=== PATIENT | female | born 1940 | race Caucasian/White ===

== ENCOUNTER 2024-07-04 17:10 | Emergency (ER) | payer OTHER ==
[~2024-07-04] VITALS: Ht 162.6 cm; Wt 65.9 kg
[2024-07-04 17:32] VITALS: BP 104/67; PULSE 105; RESP 16; TEMP 98.9; O2SAT 98
[2024-07-04 20:29] LABS: BASOPHILS % (AUTO) 0.6 % (0-1); EOSINOPHILS # (AUTO) 0.1 X10'3 (0-0.9); HEMATOCRIT 36.4 % (35.0-45.0); HEMOGLOBIN 12.3 g/dl (12.0-16.0); LYMPHOCYTES # (AUTO) 1.4 X10'3 (1.1-4.8); LYMPHOCYTES % (AUTO) 20.9 % (21-51); MEAN CORPUSCULAR HEMOGLOBIN 33.4 PG (27.0-31.0); MEAN CORPUSCULAR HGB CONC 33.8 g/dL (33.0-36.5); MEAN CORPUSCULAR VOLUME 98.9 FL (78-98); MEAN PLATELET VOLUME 9.5 FL (7.4-10.4); MONOCYTES # (AUTO) 0.7 X10'3 (0-0.9); MONOCYTES % (AUTO) 9.9 % (2-12); NEUTROPHILS # (AUTO) 4.6 X10'3 (1.8-7.7); NEUTROPHILS % (AUTO) 67.6 % (42-75); PLATELET COUNT 200 X10'3 (140-440); RED BLOOD COUNT 3.68 X10'6 (4.20-5.60); RED CELL DISTRIBUTION WIDTH 17.2 % (11.5-14.5); WHITE BLOOD COUNT 6.8 X10'3 (4.5-11.0)
[2024-07-04 20:55] LABS: ALBUMIN 2.3 G/DL (3.4-5.0); ANION GAP 14 (8-16); BLOOD UREA NITROGEN 12 MG/DL (7-18); BUN/CREATININE RATIO 12.1 (10.0-20.0); CALCIUM 8.5 MG/DL (8.5-10.1); CHLORIDE 104 MMOL/L (99-107); CREATININE 0.99 MG/DL (0.40-0.90); GLUCOSE 104 MG/DL (70-104); MAGNESIUM 1.7 MG/DL (1.5-2.4); POTASSIUM 3.2 MMOL/L (3.5-5.1); PRO BRAIN NATRIURETIC PEPTIDE 6210 PG/ML (0-450); SODIUM 139 MMOL/L (135-145); TOTAL CARBON DIOXIDE 21.2 MMOL/L (24-32); eCRCL 38 ML/MIN; eGFR 54 ML/MIN
[2024-07-04] MEDS ORDERED: AMOX-419 PO (21:49)
[2024-07-04] MEDS ORDERED: POTA-207 PO (21:49)
[2024-07-04] MEDS: CefTRIAXone/D5W-Rocephin 1gm 50 ML IV ONE (22:00)
[2024-07-04] MEDS: normal saline 1000ML IV soln IVB ONE (22:00)
== END 2024-07-04 23:05 | disposition home or self-care (01) ==
LOC: ER 17:11
DX: R05.9 Cough, unspecified (principal); R06.00 Dyspnea, unspecified; F03.90 Unspecified dementia, unspecified severity, without behavioral disturbance, psychotic disturbance, mood disturbance, and anxiety; I50.9 Heart failure, unspecified
CPT/HCPCS: 36415; 71045; 80048; 83605; 83735; 83880; 84145; 84484; 85025; 93005; 96365; 99285; J0696; J7030; J7040

== ENCOUNTER 2024-07-09 15:36 | Observation (INO) | payer MEDICARE, OTHER ==
[~2024-07-09] VITALS: Ht 149.9 cm; Wt 59.8 kg
[~2024-07-09 15:36] MED LIST: AMOX-419 PO; POTA-207 PO
[2024-07-09 16:38] LABS: BASOPHILS % (AUTO) 0.5 % (0-1); EOSINOPHILS # (AUTO) 0.1 X10'3 (0-0.9); EOSINOPHILS % (AUTO) 1.3 % (0-6); HEMATOCRIT 35.9 % (35.0-45.0); HEMOGLOBIN 12.1 g/dl (12.0-16.0); LYMPHOCYTES # (AUTO) 1.5 X10'3 (1.1-4.8); LYMPHOCYTES % (AUTO) 23.4 % (21-51); MEAN CORPUSCULAR HEMOGLOBIN 33.2 PG (27.0-31.0); MEAN CORPUSCULAR HGB CONC 33.6 g/dL (33.0-36.5); MEAN CORPUSCULAR VOLUME 98.6 FL (78-98); MEAN PLATELET VOLUME 9.4 FL (7.4-10.4); MONOCYTES # (AUTO) 0.6 X10'3 (0-0.9); MONOCYTES % (AUTO) 8.7 % (2-12); NEUTROPHILS # (AUTO) 4.4 X10'3 (1.8-7.7); NEUTROPHILS % (AUTO) 66.1 % (42-75); PLATELET COUNT 184 X10'3 (140-440); RED BLOOD COUNT 3.64 X10'6 (4.20-5.60); RED CELL DISTRIBUTION WIDTH 16.6 % (11.5-14.5); WHITE BLOOD COUNT 6.6 X10'3 (4.5-11.0)
[2024-07-09] MEDS ORDERED: METOPROLOL ER PO (16:44)
[2024-07-09] MEDS ORDERED: DABI75CA3 PO (16:44)
[2024-07-09] MEDS: dextrose 5%-1/2 normal saline 1,000 ML IV ONE (16:55)
[2024-07-09 17:01] LABS: ALANINE AMINOTRANSFERASE 17 U/L (12-78); ALBUMIN 2.2 G/DL (3.4-5.0); ALBUMIN/GLOBULIN RATIO 0.6 (1.1-1.5); ALKALINE PHOSPHATASE 68 IU/L (46-116); ANION GAP 11 (8-16); ASPARTATE AMINO TRANSFERASE 27 U/L (10-37); BILIRUBIN,DIRECT 0.4 MG/DL (0-0.3); BILIRUBIN,TOTAL 1.1 MG/DL (0.1-1.0); BLOOD UREA NITROGEN 7 MG/DL (7-18); BUN/CREATININE RATIO 7.1 (10.0-20.0); CHLORIDE 106 MMOL/L (99-107); CREATININE 0.99 MG/DL (0.40-0.90); GLUCOSE 80 MG/DL (70-104); MAGNESIUM 1.9 MG/DL (1.5-2.4); SODIUM 140 MMOL/L (135-145); TOTAL CARBON DIOXIDE 23.2 MMOL/L (24-32); TOTAL PROTEIN 6.2 G/DL (6.4-8.2); eCRCL 18 ML/MIN; eGFR 54 ML/MIN
[2024-07-09] MEDS: magnesium sulf-water 2g/50mL 50 ML IV ONE (17:35)
[2024-07-09 18:08] LABS: BILIRUBIN,URINE NEGATIVE (Neg); CLARITY,URINE CLEAR (Clear); COLOR,URINE YELLOW (Yellow); GLUCOSE, URINE NEGATIVE (Neg); KETONES,URINE 15 mg/dl (Neg); LEUKOCYTE ESTERASE ,URINE NEGATIVE (Neg); NITRITES, URINE NEGATIVE (Neg); OCCULT BLOOD,URINE NEGATIVE (Neg); PROTEIN,URINE NEGATIVE (Neg); UROBILINOGEN,URINE 0.2 E.U/dL (0.2-1.0)
[2024-07-09 18:20] LABS: UA COLLECTION TYPE STRAIGHT CATH
[2024-07-09] MEDS ORDERED: magnesium sulf-water 2g/50mL 50 ML IV PRN ×2 (18:20→19:25)
[2024-07-09] MEDS ORDERED: potassium Cl 40MEQ/1/2NS 520ml 520 ML IV PRN ×2 (18:20→19:25)
[2024-07-09] MEDS ORDERED: potassium Cl 20 mEq SR tablet PO PRN ×3 (18:20→19:25)
[2024-07-09] MEDS ORDERED: magnesium Cl slow-release 64mg tablet PO PRN ×2 (18:20→19:25)
[2024-07-09] MEDS ORDERED: magnesium sulf-water 4G/100mL 100 ML IV PRN ×2 (18:20→19:25)
[2024-07-09] MEDS: potassium CL 10mEq/100ml bag 100 ML IV ONE (19:04)
[2024-07-09] MEDS: K and/or MAG REPLACEMENT MC SCH ×2 (19:05→19:46)
[2024-07-09] MEDS: CefTRIAXone 2gm/D5W 50ml BAG 50 ML IV ONE (19:11)
[2024-07-09] MEDS ORDERED: metoclopramide 5 mg/ml inj IV PRN (19:25)
[2024-07-09] MEDS ORDERED: ondansetron/PF 4mg/2ml inj IV PRN (19:25)
[2024-07-09] MEDS: normal saline 1000ml 1,000 ML IV SCH (19:25)
[2024-07-09] MEDS ORDERED: acetaminophen 325mg tablet PO PRN (19:25)
[2024-07-09 21:20] LABS: ABG HCO3 17.8 mmol/L (21.0-28.0); ABG OXYGEN SATURATION 96.1 % (94.0-98.0); ABG PCO2 (T) 20.9 mmHg (32.0-45.0); ABG PH (T) 7.546 (7.350-7.450); ABG PO2 (T) 74.9 mmHg (83.0-108.0); ALLEN'S TEST POSITIVE; FCOHb 0.3 % (0.5-1.5); FHHb 3.9 % (0.0-5.0); FMetHb 0.3 % (0.0-1.5); FO2Hb 95.5 % (94.0-98.0); MODE ROOM AIR; PATIENT TEMPERATURE 36.7; TOTAL HEMOGLOBIN 11.7 G/dl (12.0-16.0)
[2024-07-10 00:10] VITALS: BP 134/80; PULSE 92; RESP 16; TEMP 98.3; O2SAT 96
[2024-07-10 06:00] VITALS: BP 114/95; PULSE 105; RESP 18; TEMP 97.6; O2SAT 97
[2024-07-10 06:30] LABS: BASOPHILS % (AUTO) 0.6 % (0-1); EOSINOPHILS # (AUTO) 0.1 X10'3 (0-0.9); EOSINOPHILS % (AUTO) 1.5 % (0-6); HEMATOCRIT 37.9 % (35.0-45.0); HEMOGLOBIN 12.6 g/dl (12.0-16.0); LYMPHOCYTES # (AUTO) 1.4 X10'3 (1.1-4.8); LYMPHOCYTES % (AUTO) 21.6 % (21-51); MEAN CORPUSCULAR HEMOGLOBIN 33.3 PG (27.0-31.0); MEAN CORPUSCULAR HGB CONC 33.3 g/dL (33.0-36.5); MEAN CORPUSCULAR VOLUME 99.9 FL (78-98); MEAN PLATELET VOLUME 9.1 FL (7.4-10.4); MONOCYTES # (AUTO) 0.5 X10'3 (0-0.9); MONOCYTES % (AUTO) 8.3 % (2-12); NEUTROPHILS # (AUTO) 4.4 X10'3 (1.8-7.7); PLATELET COUNT 166 X10'3 (140-440); RED BLOOD COUNT 3.79 X10'6 (4.20-5.60); WHITE BLOOD COUNT 6.5 X10'3 (4.5-11.0)
[2024-07-10 08:00] VITALS: BP 114/95; PULSE 105
[2024-07-10 08:50] LABS: ALBUMIN 1.9 G/DL (3.4-5.0); ANION GAP 11 (8-16); BLOOD UREA NITROGEN 5 MG/DL (7-18); BUN/CREATININE RATIO 6.3 (10.0-20.0); CALCIUM 6.7 MG/DL (8.5-10.1); CHLORIDE 108 MMOL/L (99-107); GLUCOSE 84 MG/DL (70-104); MAGNESIUM 1.6 MG/DL (1.5-2.4); SODIUM 139 MMOL/L (135-145); TOTAL CARBON DIOXIDE 20.3 MMOL/L (24-32); eCRCL 23 ML/MIN; eGFR 69 ML/MIN
[2024-07-10 08:55] LABS: POTASSIUM 3.3 MMOL/L (3.5-5.1)
[2024-07-10] MEDS: potassium Cl 20 mEq SR tablet PO PRN (09:57)
[2024-07-10 10:00] VITALS: BP 125/76; PULSE 99; RESP 18; TEMP 97.3; O2SAT 98
[2024-07-10] MEDS: metoprolol succinate 25mg (24-HOUR) SR. Tablet PO ONE (12:23)
[2024-07-10 14:00] VITALS: BP_SYST 115; BP_SYST 121; BP_DIAS 73; BP_DIAS 75; PULSE 91; PULSE 97
[2024-07-10] MEDS ORDERED: glucagon, human recombinant 1mg kit SUBCUT PRN (14:15)
[2024-07-10] MEDS ORDERED: DEXTROSE 15 GM of carb/4 tabs (each vial/BOTTLE has 4 tablets) PO PRN ×2 (14:15)
[2024-07-10] MEDS ORDERED: dextrose 50%-water 50ml dispensing syringe IV PRN ×2 (14:15)
[2024-07-10] MEDS ORDERED: lactose-reduced food (Ensure Enlive) - 237ml bottle PO SCH (18:00)
[2024-07-11] MEDS ORDERED: metoprolol succinate 25mg (24-HOUR) SR. Tablet PO SCH (08:00)
[2024-07-17] MEDS ORDERED: LACT1CAP26 PO (12:17)
[2024-07-17] MEDS ORDERED: LEVO-65 PO (12:17)
== END 2024-07-10 17:45 | disposition home or self-care (01) ==
LOC: ER 15:38 → INTOOBSV 18:18 → UNDOADMOB 18:18 → ED HOLD 18:18 → ORTHO 4S 23:45 → ED HOLD 23:45
PROVIDERS: ADMIT Internal Medicine; ATTEND Internal Medicine
DX: R62.7 Adult failure to thrive (principal); E87.6 Hypokalemia; F03.90 Unspecified dementia, unspecified severity, without behavioral disturbance, psychotic disturbance, mood disturbance, and anxiety; I48.91 Unspecified atrial fibrillation; J90 Pleural effusion, not elsewhere classified; E16.2 Hypoglycemia, unspecified; Z68.1 Body mass index [BMI] 19.9 or less, adult; Z88.0 Allergy status to penicillin; Z79.899 Other long term (current) drug therapy; Z68.26 Body mass index [BMI] 26.0-26.9, adult
CPT/HCPCS: 80048; 80076; 81003; 82803; 82948; 83605; 83735; 84145; 84484; 85018; 87040; 93005; 96361; 96365; 96366; 96368; 99285; G0378; 36415; 36600; 71045; 85025; 87081; 92508; 92616; A4353; J0696; J3480; J7030

== ENCOUNTER 2024-08-13 10:56 | Inpatient (IN) | payer OTHER ==
[~2024-08-13] VITALS: Ht 157.5 cm; Wt 40.0 kg
[~2024-08-13 10:56] MED LIST changes: -AMOX-419 PO; +DABI75CA3 PO; +LACT1CAP26 PO; +METOPROLOL ER PO; -POTA-207 PO
[2024-08-13 13:22] LABS: BASOPHILS % (AUTO) 0.3 % (0-1); EOSINOPHILS # (AUTO) 0.1 X10'3 (0-0.9); EOSINOPHILS % (AUTO) 1.9 % (0-6); HEMATOCRIT 39.8 % (35.0-45.0); HEMOGLOBIN 13.4 g/dl (12.0-16.0); LYMPHOCYTES # (AUTO) 1.9 X10'3 (1.1-4.8); LYMPHOCYTES % (AUTO) 37.8 % (21-51); MEAN CORPUSCULAR HEMOGLOBIN 33.6 PG (27.0-31.0); MEAN CORPUSCULAR HGB CONC 33.7 g/dL (33.0-36.5); MEAN CORPUSCULAR VOLUME 99.6 FL (78-98); MEAN PLATELET VOLUME 9.2 FL (7.4-10.4); MONOCYTES # (AUTO) 0.5 X10'3 (0-0.9); MONOCYTES % (AUTO) 9.1 % (2-12); NEUTROPHILS # (AUTO) 2.5 X10'3 (1.8-7.7); NEUTROPHILS % (AUTO) 50.9 % (42-75); PLATELET COUNT 232 X10'3 (140-440); RED CELL DISTRIBUTION WIDTH 16.8 % (11.5-14.5)
[2024-08-13 13:28] LABS: BILIRUBIN,URINE NEGATIVE (Neg); CLARITY,URINE CLOUDY (Clear); COLOR,URINE YELLOW (Yellow); GLUCOSE, URINE NEGATIVE (Neg); KETONES,URINE NEGATIVE (Neg); LEUKOCYTE ESTERASE ,URINE MODERATE (Neg); NITRITES, URINE POSITIVE (Neg); OCCULT BLOOD,URINE NEGATIVE (Neg); PROTEIN,URINE NEGATIVE (Neg); UROBILINOGEN,URINE 0.2 E.U/dL (0.2-1.0)
[2024-08-13 13:41] LABS: UA COLLECTION TYPE CLN CATCH MIDSTREAM
[2024-08-13 13:41] LABS: ALBUMIN 2.1 G/DL (3.4-5.0); ANION GAP 6 (8-16); BLOOD UREA NITROGEN 15 MG/DL (7-18); BUN/CREATININE RATIO 15.3 (10.0-20.0); CALCIUM 8.7 MG/DL (8.5-10.1); CHLORIDE 106 MMOL/L (99-107); CREATININE 0.98 MG/DL (0.40-0.90); GLUCOSE 74 MG/DL (70-104); POTASSIUM 4.1 MMOL/L (3.5-5.1); SODIUM 139 MMOL/L (135-145); TOTAL CARBON DIOXIDE 26.9 MMOL/L (24-32); eCRCL 28 ML/MIN; eGFR 54 ML/MIN
[2024-08-13 13:42] LABS: BACTERIA,URINE 4+ /HPF (Neg); RBC,URINE 0-2 /HPF (0-2); WBC,URINE 20-30 /HPF (0-4)
[2024-08-13 13:43] LABS: SQUAMOUS EPITHELIAL CELL,UR FEW /LPF (FEW)
[2024-08-13] MEDS: levoFLOXACIN-Levaquin 500mg/D5 100 ML IV ONE (15:26)
[2024-08-13] MEDS: normal saline 1000ML IV soln IVB ONE (15:27)
[2024-08-13] MEDS: metoprolol succinate 25mg (24-HOUR) SR. Tablet PO ONE (15:52)
[2024-08-13] MEDS ORDERED: magnesium sulf-water 2g/50mL 50 ML IV PRN (16:00)
[2024-08-13] MEDS ORDERED: potassium Cl 20 mEq SR tablet PO PRN ×2 (16:00)
[2024-08-13] MEDS ORDERED: potassium Cl 40MEQ/1/2NS 520ml 520 ML IV PRN (16:00)
[2024-08-13] MEDS ORDERED: bisacodyl 10mg suppository rectal RC PRN (16:00)
[2024-08-13] MEDS ORDERED: acetaminophen 325mg tablet PO PRN (16:00)
[2024-08-13] MEDS ORDERED: mag hydrox/Alum hydrox/simeth 30ml oral suspension PO PRN (16:00)
[2024-08-13] MEDS ORDERED: magnesium sulf-water 4G/100mL 100 ML IV PRN (16:00)
[2024-08-13] MEDS ORDERED: ondansetron/PF 4mg/2ml inj IV PRN (16:00)
[2024-08-13] MEDS: normal saline 1000ml 1,000 ML IV SCH (16:06)
[2024-08-13] MEDS: CefTRIAXone/D5W-Rocephin 1gm 50 ML IV ONE (17:00)
[2024-08-13] MEDS: K and/or MAG REPLACEMENT MC SCH (20:00)
[2024-08-13] MEDS: docusate sod 100mg capsule PO SCH (20:00)
[2024-08-13 22:50] VITALS: BP 106/84; PULSE 63; RESP 15; TEMP 97.7; O2SAT 97
[2024-08-14] VITALS (11 sets, daily range): BP systolic 91–118; BP diastolic 46–75; PULSE 52–115; RESP 12–23; TEMP 97.1–98.4; O2SAT 93–99
[2024-08-14] MEDS ORDERED: METO-384 PO (00:02)
[2024-08-14 06:51] LABS: BASOPHILS # (AUTO) 0.1 X10'3 (0-0.2); EOSINOPHILS # (AUTO) 0.1 X10'3 (0-0.9); EOSINOPHILS % (AUTO) 1.4 % (0-6); HEMATOCRIT 32.3 % (35.0-45.0); LYMPHOCYTES # (AUTO) 1.7 X10'3 (1.1-4.8); MEAN CORPUSCULAR HEMOGLOBIN 34.2 PG (27.0-31.0); MEAN CORPUSCULAR VOLUME 100.7 FL (78-98); MEAN PLATELET VOLUME 9.3 FL (7.4-10.4); MONOCYTES # (AUTO) 0.4 X10'3 (0-0.9); MONOCYTES % (AUTO) 8.7 % (2-12); NEUTROPHILS # (AUTO) 2.7 X10'3 (1.8-7.7); NEUTROPHILS % (AUTO) 54.9 % (42-75); PLATELET COUNT 180 X10'3 (140-440); RED BLOOD COUNT 3.21 X10'6 (4.20-5.60); RED CELL DISTRIBUTION WIDTH 16.9 % (11.5-14.5)
[2024-08-14] MEDS: metoprolol succinate 25mg (24-HOUR) SR. Tablet PO SCH (08:51)
[2024-08-14] MEDS: CefTRIAXone/D5W-Rocephin 1gm 50 ML IV SCH (08:52)
[2024-08-14] MEDS ORDERED: diltiazem-NS 100mg/100ml 100 ML IV SCH (09:15)
[2024-08-14] MEDS: metoprolol tartrate 50mg tablet PO ONE (10:24)
[2024-08-14] MEDS: digoxin 250mcg/ml 2ml ampule IV ONE (12:32)
[2024-08-14] MEDS: amiodarone 150mg/dext, iso-os 100 ML IV ONE (12:45)
[2024-08-14] MEDS: amiodarone/D5 360MG/200ML BAG 200 ML IV SCH (13:00)
[2024-08-14] MEDS: normal saline 1000ml 1,000 ML IV SCH (14:44)
[2024-08-14 16:32] LABS: BASOPHILS # (AUTO) 0.1 X10'3 (0-0.2); EOSINOPHILS # (AUTO) 0.1 X10'3 (0-0.9); EOSINOPHILS % (AUTO) 1.8 % (0-6); HEMATOCRIT 34.2 % (35.0-45.0); HEMOGLOBIN 11.6 g/dl (12.0-16.0); LYMPHOCYTES # (AUTO) 1.8 X10'3 (1.1-4.8); LYMPHOCYTES % (AUTO) 32.1 % (21-51); MEAN CORPUSCULAR HEMOGLOBIN 33.4 PG (27.0-31.0); MEAN CORPUSCULAR HGB CONC 33.9 g/dL (33.0-36.5); MEAN CORPUSCULAR VOLUME 98.7 FL (78-98); MEAN PLATELET VOLUME 9.2 FL (7.4-10.4); MONOCYTES # (AUTO) 0.5 X10'3 (0-0.9); MONOCYTES % (AUTO) 8.3 % (2-12); NEUTROPHILS # (AUTO) 3.1 X10'3 (1.8-7.7); NEUTROPHILS % (AUTO) 56.8 % (42-75); PLATELET COUNT 172 X10'3 (140-440); RED BLOOD COUNT 3.47 X10'6 (4.20-5.60); RED CELL DISTRIBUTION WIDTH 16.7 % (11.5-14.5); WHITE BLOOD COUNT 5.5 X10'3 (4.5-11.0)
[2024-08-14] MEDS: lactose-reduced food (Ensure Enlive) - 237ml bottle PO SCH (18:02)
[2024-08-14 20:10] LABS: ALANINE AMINOTRANSFERASE 19 U/L (12-78); ALBUMIN 2.1 G/DL (3.4-5.0); ALBUMIN/GLOBULIN RATIO 0.5 (1.1-1.5); ALKALINE PHOSPHATASE 71 IU/L (46-116); ANION GAP 7 (8-16); ASPARTATE AMINO TRANSFERASE 29 U/L (10-37); BILIRUBIN,TOTAL 0.6 MG/DL (0.1-1.0); BLOOD UREA NITROGEN 11 MG/DL (7-18); BUN/CREATININE RATIO 10.1 (10.0-20.0); CALCIUM 8.1 MG/DL (8.5-10.1); CHLORIDE 107 MMOL/L (99-107); CREATININE 1.09 MG/DL (0.40-0.90); GLUCOSE 96 MG/DL (70-104); POTASSIUM 4.4 MMOL/L (3.5-5.1); SODIUM 135 MMOL/L (135-145); TOTAL CARBON DIOXIDE 21.4 MMOL/L (24-32); TOTAL PROTEIN 6.6 G/DL (6.4-8.2); eCRCL 26 ML/MIN; eGFR 48 ML/MIN
[2024-08-15] VITALS (12 sets, daily range): BP systolic 94–127; BP diastolic 41–75; PULSE 70–93; RESP 11–24; TEMP 96.7–98.7; O2SAT 96–99
[2024-08-15 07:00] LABS: BASOPHILS % (AUTO) 0.4 % (0-1); EOSINOPHILS # (AUTO) 0.1 X10'3 (0-0.9); EOSINOPHILS % (AUTO) 2.2 % (0-6); HEMATOCRIT 32.5 % (35.0-45.0); HEMOGLOBIN 11.4 g/dl (12.0-16.0); LYMPHOCYTES # (AUTO) 1.2 X10'3 (1.1-4.8); LYMPHOCYTES % (AUTO) 24.2 % (21-51); MEAN CORPUSCULAR HEMOGLOBIN 34.6 PG (27.0-31.0); MEAN CORPUSCULAR VOLUME 98.8 FL (78-98); MEAN PLATELET VOLUME 9.2 FL (7.4-10.4); MONOCYTES # (AUTO) 0.4 X10'3 (0-0.9); NEUTROPHILS # (AUTO) 3.3 X10'3 (1.8-7.7); NEUTROPHILS % (AUTO) 65.2 % (42-75); PLATELET COUNT 181 X10'3 (140-440); RED BLOOD COUNT 3.29 X10'6 (4.20-5.60); RED CELL DISTRIBUTION WIDTH 16.9 % (11.5-14.5)
[2024-08-15] MEDS: amiodarone 200mg tablet PO SCH (08:08)
[2024-08-15] MEDS: metoprolol succinate 25mg (24-HOUR) SR. Tablet PO SCH (10:03)
[2024-08-16 02:00] VITALS: BP 126/53; PULSE 94; RESP 20; TEMP 97.8; O2SAT 98
[2024-08-16 06:44] LABS: BASOPHILS % (AUTO) 0.4 % (0-1); EOSINOPHILS % (AUTO) 0.9 % (0-6); HEMATOCRIT 32.6 % (35.0-45.0); LYMPHOCYTES # (AUTO) 0.6 X10'3 (1.1-4.8); LYMPHOCYTES % (AUTO) 15.9 % (21-51); MEAN CORPUSCULAR HEMOGLOBIN 33.5 PG (27.0-31.0); MEAN CORPUSCULAR HGB CONC 33.8 g/dL (33.0-36.5); MEAN CORPUSCULAR VOLUME 99.2 FL (78-98); MEAN PLATELET VOLUME 9.3 FL (7.4-10.4); MONOCYTES # (AUTO) 0.4 X10'3 (0-0.9); MONOCYTES % (AUTO) 9.7 % (2-12); NEUTROPHILS % (AUTO) 73.1 % (42-75); PLATELET COUNT 173 X10'3 (140-440); RED BLOOD COUNT 3.29 X10'6 (4.20-5.60); RED CELL DISTRIBUTION WIDTH 16.5 % (11.5-14.5); WHITE BLOOD COUNT 4.1 X10'3 (4.5-11.0)
[2024-08-16 06:51] LABS: MAGNESIUM 1.6 MG/DL (1.5-2.4)
[2024-08-16 08:12] LABS: ALANINE AMINOTRANSFERASE 20 U/L (12-78); ALBUMIN 1.8 G/DL (3.4-5.0); ALBUMIN/GLOBULIN RATIO 0.5 (1.1-1.5); ALKALINE PHOSPHATASE 71 IU/L (46-116); ANION GAP 8 (8-16); ASPARTATE AMINO TRANSFERASE 27 U/L (10-37); BILIRUBIN,TOTAL 0.5 MG/DL (0.1-1.0); BLOOD UREA NITROGEN 9 MG/DL (7-18); BUN/CREATININE RATIO 8.3 (10.0-20.0); CALCIUM 7.9 MG/DL (8.5-10.1); CHLORIDE 109 MMOL/L (99-107); CREATININE 1.08 MG/DL (0.40-0.90); GLUCOSE 91 MG/DL (70-104); POTASSIUM 3.8 MMOL/L (3.5-5.1); SODIUM 138 MMOL/L (135-145); TOTAL CARBON DIOXIDE 20.9 MMOL/L (24-32); TOTAL PROTEIN 5.8 G/DL (6.4-8.2); eCRCL 26 ML/MIN; eGFR 49 ML/MIN
[2024-08-16] MEDS ORDERED: ASPI81TA52 PO (08:26)
[2024-08-16] MEDS ORDERED: METO-395 PO (08:26)
[2024-08-16] MEDS ORDERED: AMI200T PO (08:26)
[2024-08-16 08:50] VITALS: RESP 18; O2SAT 98
[2024-08-16 09:14] VITALS: BP 112/52; PULSE 91; RESP 18; TEMP 97.3; O2SAT 98
[2024-08-16 11:00] VITALS: BP 133/63; PULSE 93; RESP 22; TEMP 93; O2SAT 99
[2024-08-16] MEDS ORDERED: CEFD300C3 PO (15:49)
== END 2024-08-16 17:17 | disposition home or self-care (01) | DRG 871 ==
LOC: ER 10:56 → UNDOADMIN 15:56 → ED HOLD 15:56 → ORTHO 4S 22:46 → PCU 3S 08-14 11:12
PROVIDERS: ADMIT Family Medicine; ATTEND Nurse Practitioner Family
DX: A41.9 Sepsis, unspecified organism (principal); G93.41 Metabolic encephalopathy; I48.20 Chronic atrial fibrillation, unspecified; N30.00 Acute cystitis without hematuria; E86.0 Dehydration; F03.A0 Unspecified dementia, mild, without behavioral disturbance, psychotic disturbance, mood disturbance, and anxiety; G47.33 Obstructive sleep apnea (adult) (pediatric); Z88.0 Allergy status to penicillin; Z79.899 Other long term (current) drug therapy; Z88.5 Allergy status to narcotic agent; Z91.014 Allergy to mammalian meats; Z88.8 Allergy status to other drugs, medicaments and biological substances; Z91.018 Allergy to other foods; Z82.49 Family history of ischemic heart disease and other diseases of the circulatory system; Z83.3 Family history of diabetes mellitus
CPT/HCPCS: 36415; 70450; 71045; 76770; 80048; 80053; 81001; 83605; 83735; 84145; 85025; 87040; 87077; 87081; 87088; 87186; 97161; 97530; C1758; G0378; J0282; J0696; J1160; J1956; J7030; J7050

== ENCOUNTER 2024-08-20 13:08 | Emergency (ER) | payer OTHER ==
[~2024-08-20] VITALS: Ht 157.5 cm; Wt 61.4 kg
[~2024-08-20 13:08] MED LIST changes: +AMI200T PO; +ASPI81TA52 PO; +CEFD300C3 PO; +METO-395 PO; -METOPROLOL ER PO
[2024-08-20 13:27] VITALS: TEMP 97.6
[2024-08-20 15:16] LABS: BASOPHILS % (AUTO) 1.2 % (0-1); EOSINOPHILS % (AUTO) 1.3 % (0-6); HEMATOCRIT 33.3 % (35.0-45.0); HEMOGLOBIN 11.4 g/dl (12.0-16.0); LYMPHOCYTES # (AUTO) 1.1 X10'3 (1.1-4.8); LYMPHOCYTES % (AUTO) 32.2 % (21-51); MEAN CORPUSCULAR HEMOGLOBIN 33.7 PG (27.0-31.0); MEAN CORPUSCULAR HGB CONC 34.2 g/dL (33.0-36.5); MEAN CORPUSCULAR VOLUME 98.3 FL (78-98); MEAN PLATELET VOLUME 8.6 FL (7.4-10.4); MONOCYTES # (AUTO) 0.4 X10'3 (0-0.9); MONOCYTES % (AUTO) 12.3 % (2-12); NEUTROPHILS # (AUTO) 1.8 X10'3 (1.8-7.7); PLATELET COUNT 164 X10'3 (140-440); RED BLOOD COUNT 3.39 X10'6 (4.20-5.60); RED CELL DISTRIBUTION WIDTH 16.3 % (11.5-14.5); WHITE BLOOD COUNT 3.3 X10'3 (4.5-11.0)
[2024-08-20 15:43] LABS: ALANINE AMINOTRANSFERASE 17 U/L (12-78); ALBUMIN 1.9 G/DL (3.4-5.0); ALBUMIN/GLOBULIN RATIO 0.5 (1.1-1.5); ALKALINE PHOSPHATASE 57 IU/L (46-116); ANION GAP 6 (8-16); ASPARTATE AMINO TRANSFERASE 24 U/L (10-37); BILIRUBIN,TOTAL 0.7 MG/DL (0.1-1.0); BLOOD UREA NITROGEN 13 MG/DL (7-18); BUN/CREATININE RATIO 16.5 (10.0-20.0); CALCIUM 7.8 MG/DL (8.5-10.1); CHLORIDE 103 MMOL/L (99-107); CREATININE 0.79 MG/DL (0.40-0.90); GLUCOSE 85 MG/DL (70-104); POTASSIUM 3.5 MMOL/L (3.5-5.1); PRO BRAIN NATRIURETIC PEPTIDE 2944 PG/ML (0-450); SODIUM 135 MMOL/L (135-145); TOTAL CARBON DIOXIDE 26.2 MMOL/L (24-32); TOTAL PROTEIN 5.8 G/DL (6.4-8.2); eCRCL 43 ML/MIN; eGFR 70 ML/MIN
[2024-08-20] MEDS: normal saline 1000ML IV soln IVB ONE (18:40)
[2024-08-20 21:37] VITALS: BP 121/72; PULSE 92; RESP 16; O2SAT 95
== END 2024-08-20 21:49 | disposition home or self-care (01) ==
LOC: ER 13:08
DX: J40 Bronchitis, not specified as acute or chronic (principal); F03.90 Unspecified dementia, unspecified severity, without behavioral disturbance, psychotic disturbance, mood disturbance, and anxiety; Z88.5 Allergy status to narcotic agent; Z88.0 Allergy status to penicillin; Z88.8 Allergy status to other drugs, medicaments and biological substances; Z91.014 Allergy to mammalian meats; Z79.82 Long term (current) use of aspirin; Z79.899 Other long term (current) drug therapy; Z20.822 Contact with and (suspected) exposure to COVID-19
CPT/HCPCS: 36415; 71045; 80053; 83605; 83880; 84145; 84484; 85025; 87040; 87502; 87503; 87811; 93005; 99285; J7030; 36556

== ENCOUNTER 2024-09-03 11:39 | Emergency (ER) | payer OTHER ==
[~2024-09-03] VITALS: Ht 157.5 cm; Wt 60.0 kg
[2024-09-03 11:47] VITALS: TEMP 97.9
[2024-09-03] MEDS: cyclobenzaprine 10mg tablet PO ONE (12:44)
[2024-09-03] MEDS: HYDROcodone/acetaminophen 5mg/325mg tablet PO ONE (12:44)
[2024-09-03] MEDS: dexamethasone sod phosphate 10mg/ml inj IM STA (12:44)
[2024-09-03] MEDS ORDERED: HYDR-3965 PO (14:40)
[2024-09-03 15:00] VITALS: BP 95/66; PULSE 113; RESP 16; O2SAT 96
== END 2024-09-03 15:03 | disposition home or self-care (01) ==
LOC: ER 11:39
DX: S30.0XXA Contusion of lower back and pelvis, initial encounter (principal); R42 Dizziness and giddiness; F03.90 Unspecified dementia, unspecified severity, without behavioral disturbance, psychotic disturbance, mood disturbance, and anxiety; Z79.82 Long term (current) use of aspirin; Z88.5 Allergy status to narcotic agent; Z88.0 Allergy status to penicillin; X58.XXXA Exposure to other specified factors, initial encounter; Y93.89 Activity, other specified; Y92.89 Other specified places as the place of occurrence of the external cause; Y99.8 Other external cause status
CPT/HCPCS: 72100; 96372; 99283; J1100

== ENCOUNTER 2024-09-06 14:13 | Inpatient (IN) | payer OTHER ==
[~2024-09-06] VITALS: Ht 156.2 cm; Wt 52.8 kg
[~2024-09-06 14:13] MED LIST changes: +HYDR-3965 PO
[2024-09-06 14:57] LABS: BASOPHILS % (AUTO) 0.5 % (0-1); EOSINOPHILS % (AUTO) 0.4 % (0-6); HEMATOCRIT 30.7 % (35.0-45.0); HEMOGLOBIN 10.3 g/dl (12.0-16.0); LYMPHOCYTES # (AUTO) 1.9 X10'3 (1.1-4.8); LYMPHOCYTES % (AUTO) 21.3 % (21-51); MEAN CORPUSCULAR HEMOGLOBIN 34.2 PG (27.0-31.0); MEAN CORPUSCULAR HGB CONC 33.5 g/dL (33.0-36.5); MEAN PLATELET VOLUME 8.6 FL (7.4-10.4); MONOCYTES # (AUTO) 0.7 X10'3 (0-0.9); MONOCYTES % (AUTO) 7.6 % (2-12); NEUTROPHILS # (AUTO) 6.4 X10'3 (1.8-7.7); NEUTROPHILS % (AUTO) 70.2 % (42-75); PLATELET COUNT 248 X10'3 (140-440); RED BLOOD COUNT 3.01 X10'6 (4.20-5.60); RED CELL DISTRIBUTION WIDTH 17.2 % (11.5-14.5); WHITE BLOOD COUNT 9.1 X10'3 (4.5-11.0)
[2024-09-06] MEDS ORDERED: furosemide 10 MG/1 ML 10ml inj IV ONE (15:10)
[2024-09-06 15:12] LABS: ALANINE AMINOTRANSFERASE 21 U/L (12-78); ALBUMIN 2.1 G/DL (3.4-5.0); ALBUMIN/GLOBULIN RATIO 0.5 (1.1-1.5); ALKALINE PHOSPHATASE 79 IU/L (46-116); ANION GAP 9 (8-16); ASPARTATE AMINO TRANSFERASE 20 U/L (10-37); BLOOD UREA NITROGEN 16 MG/DL (7-18); BUN/CREATININE RATIO 14.5 (10.0-20.0); CALCIUM 7.9 MG/DL (8.5-10.1); CHLORIDE 102 MMOL/L (99-107); GLUCOSE 93 MG/DL (70-104); POTASSIUM 4.4 MMOL/L (3.5-5.1); SODIUM 134 MMOL/L (135-145); TOTAL CARBON DIOXIDE 23.3 MMOL/L (24-32); eCRCL 30 ML/MIN; eGFR 48 ML/MIN
[2024-09-06 15:20] LABS: PRO BRAIN NATRIURETIC PEPTIDE 5853 PG/ML (0-450)
[2024-09-06] MEDS: furosemide 20 MG/2 ML vial IV ONE (15:27)
[2024-09-06 15:30] LABS: MAGNESIUM 1.8 MG/DL (1.5-2.4)
[2024-09-06] MEDS ORDERED: ondansetron/PF 4mg/2ml inj IV PRN (16:20)
[2024-09-06] MEDS ORDERED: magnesium sulf-water 2g/50mL 50 ML IV PRN (16:20)
[2024-09-06] MEDS ORDERED: potassium Cl 40MEQ/1/2NS 520ml 520 ML IV PRN (16:20)
[2024-09-06] MEDS ORDERED: mag hydrox/Alum hydrox/simeth 30ml oral suspension PO PRN (16:20)
[2024-09-06] MEDS ORDERED: bisacodyl 10mg suppository rectal RC PRN (16:20)
[2024-09-06] MEDS ORDERED: acetaminophen 325mg tablet PO PRN (16:20)
[2024-09-06] MEDS ORDERED: polyethylene glycol 3350 17gm powd pack PO PRN (16:20)
[2024-09-06] MEDS ORDERED: potassium Cl 20 mEq SR tablet PO PRN ×2 (16:20)
[2024-09-06] MEDS ORDERED: magnesium sulf-water 4G/100mL 100 ML IV PRN (16:20)
[2024-09-06 17:28] LABS: BILIRUBIN,URINE NEGATIVE (Neg); CLARITY,URINE CLEAR (Clear); COLOR,URINE STRAW (Yellow); GLUCOSE, URINE NEGATIVE (Neg); KETONES,URINE NEGATIVE (Neg); LEUKOCYTE ESTERASE ,URINE NEGATIVE (Neg); NITRITES, URINE NEGATIVE (Neg); OCCULT BLOOD,URINE TRACE-INTACT (Neg); PH,URINE 6.5 (4.8-8.0); PROTEIN,URINE NEGATIVE (Neg); UROBILINOGEN,URINE 0.2 E.U/dL (0.2-1.0)
[2024-09-06 17:34] LABS: UA COLLECTION TYPE FOLEY CATH
[2024-09-06 17:37] LABS: BACTERIA,URINE NONE SEEN /HPF (Neg); SQUAMOUS EPITHELIAL CELL,UR FEW /LPF (FEW); WBC,URINE 0-4 /HPF (0-4)
[2024-09-06 17:38] LABS: MUCUS STRANDS NONE SEEN /LPF (Neg); RENAL CELLS, URINE FEW /HPF
[2024-09-06] MEDS: CefTRIAXone/D5W-Rocephin 1gm 50 ML IV ONE (17:42)
[2024-09-06] MEDS: K and/or MAG REPLACEMENT MC SCH (19:57)
[2024-09-06] MEDS: docusate sod 100mg capsule PO SCH (20:08)
[2024-09-06] MEDS: amiodarone 200mg tablet PO SCH (20:08)
[2024-09-06] MEDS ORDERED: metoprolol succinate 25mg (24-HOUR) SR. Tablet PO SCH ×2 (23:30→23:47)
[2024-09-07] VITALS (17 sets, daily range): BP systolic 80–153; BP diastolic 53–85; PULSE 90–139; RESP 16–40; TEMP 97.1–98.3; O2SAT 91–99
[2024-09-07] MEDS: metoprolol succinate 25mg (24-HOUR) SR. Tablet PO ONE (00:05)
[2024-09-07 06:13] LABS: BASOPHILS % (AUTO) 0.3 % (0-1); EOSINOPHILS % (AUTO) 0.3 % (0-6); HEMOGLOBIN 9.4 g/dl (12.0-16.0); LYMPHOCYTES # (AUTO) 1.6 X10'3 (1.1-4.8); LYMPHOCYTES % (AUTO) 28.6 % (21-51); MEAN CORPUSCULAR HEMOGLOBIN 33.9 PG (27.0-31.0); MEAN CORPUSCULAR HGB CONC 33.5 g/dL (33.0-36.5); MEAN CORPUSCULAR VOLUME 101.1 FL (78-98); MEAN PLATELET VOLUME 8.8 FL (7.4-10.4); MONOCYTES # (AUTO) 0.6 X10'3 (0-0.9); MONOCYTES % (AUTO) 9.9 % (2-12); NEUTROPHILS # (AUTO) 3.5 X10'3 (1.8-7.7); NEUTROPHILS % (AUTO) 60.9 % (42-75); PLATELET COUNT 201 X10'3 (140-440); RED BLOOD COUNT 2.77 X10'6 (4.20-5.60); RED CELL DISTRIBUTION WIDTH 16.4 % (11.5-14.5); WHITE BLOOD COUNT 5.7 X10'3 (4.5-11.0)
[2024-09-07 06:41] LABS: ALANINE AMINOTRANSFERASE 17 U/L (12-78); ALBUMIN 1.8 G/DL (3.4-5.0); ALBUMIN/GLOBULIN RATIO 0.5 (1.1-1.5); ALKALINE PHOSPHATASE 72 IU/L (46-116); ANION GAP 10 (8-16); ASPARTATE AMINO TRANSFERASE 19 U/L (10-37); BLOOD UREA NITROGEN 16 MG/DL (7-18); BUN/CREATININE RATIO 14.7 (10.0-20.0); CALCIUM 7.8 MG/DL (8.5-10.1); CHLORIDE 104 MMOL/L (99-107); CREATININE 1.09 MG/DL (0.40-0.90); GLUCOSE 76 MG/DL (70-104); MAGNESIUM 1.7 MG/DL (1.5-2.4); POTASSIUM 3.9 MMOL/L (3.5-5.1); SODIUM 136 MMOL/L (135-145); TOTAL CARBON DIOXIDE 22.5 MMOL/L (24-32); TOTAL PROTEIN 5.6 G/DL (6.4-8.2); eCRCL 31 ML/MIN; eGFR 48 ML/MIN
[2024-09-07] MEDS ORDERED: metoprolol succinate 25mg (24-HOUR) SR. Tablet PO SCH (08:00)
[2024-09-07] MEDS: aspirin 81mg, enteric-coated 1 TAB TABLET.DR PO SCH (09:02)
[2024-09-07] MEDS: CefTRIAXone/D5W-Rocephin 1gm 50 ML IV SCH (09:02)
[2024-09-07] MEDS: lactulose 20gm/30ml cup PO SCH (13:34)
[2024-09-07 19:29] LABS: % IRON SATURATION 29 % (11-46); IRON 52 UG/DL (49-151); TOTAL IRON BINDING CAPACITY 179 UG/DL (259-388)
[2024-09-07] MEDS ORDERED: iohexol 350MG/ML 100ml bottle IV ONE (23:29)
[2024-09-07] MEDS: metoprolol succinate 25mg (24-HOUR) SR. Tablet PO SCH (23:51)
[2024-09-08] VITALS (10 sets, daily range): BP systolic 98–127; BP diastolic 60–75; PULSE 95–130; RESP 17–34; TEMP 96.5–97.9; O2SAT 95–100
[2024-09-08] MEDS: metoprolol tartrate 1mg/ml inj IV ONE (04:15)
[2024-09-08] MEDS: metoprolol tartrate 12.5mg (1/2 tablet) PO ONE (08:25)
[2024-09-08 08:45] LABS: ALANINE AMINOTRANSFERASE 14 U/L (12-78); ALBUMIN 1.7 G/DL (3.4-5.0); ALBUMIN/GLOBULIN RATIO 0.5 (1.1-1.5); ALKALINE PHOSPHATASE 68 IU/L (46-116); ANION GAP 9 (8-16); ASPARTATE AMINO TRANSFERASE 22 U/L (10-37); BLOOD UREA NITROGEN 12 MG/DL (7-18); BUN/CREATININE RATIO 11.7 (10.0-20.0); CALCIUM 7.8 MG/DL (8.5-10.1); CHLORIDE 107 MMOL/L (99-107); CREATININE 1.03 MG/DL (0.40-0.90); GLUCOSE 108 MG/DL (70-104); MAGNESIUM 1.7 MG/DL (1.5-2.4); POTASSIUM 3.6 MMOL/L (3.5-5.1); SODIUM 137 MMOL/L (135-145); TOTAL CARBON DIOXIDE 21.2 MMOL/L (24-32); TOTAL PROTEIN 5.4 G/DL (6.4-8.2); eCRCL 33 ML/MIN; eGFR 51 ML/MIN
[2024-09-08] MEDS: HYDROmorphone inj. 0.5 MG/0.5 ML DISP.SYRIN IV ONE (14:10)
[2024-09-08 17:24] LABS: BASOPHILS % (AUTO) 0.4 % (0-1); EOSINOPHILS % (AUTO) 0.4 % (0-6); HEMOGLOBIN 9.6 g/dl (12.0-16.0); LYMPHOCYTES # (AUTO) 1.2 X10'3 (1.1-4.8); LYMPHOCYTES % (AUTO) 21.7 % (21-51); MEAN CORPUSCULAR HEMOGLOBIN 34.8 PG (27.0-31.0); MEAN CORPUSCULAR HGB CONC 33.2 g/dL (33.0-36.5); MEAN PLATELET VOLUME 8.9 FL (7.4-10.4); MONOCYTES # (AUTO) 0.3 X10'3 (0-0.9); MONOCYTES % (AUTO) 5.9 % (2-12); NEUTROPHILS # (AUTO) 3.8 X10'3 (1.8-7.7); NEUTROPHILS % (AUTO) 71.6 % (42-75); PLATELET COUNT 189 X10'3 (140-440); RED BLOOD COUNT 2.76 X10'6 (4.20-5.60); RED CELL DISTRIBUTION WIDTH 18.1 % (11.5-14.5); WHITE BLOOD COUNT 5.3 X10'3 (4.5-11.0)
[2024-09-08] MEDS: metoprolol succinate 25mg (24-HOUR) SR. Tablet PO SCH (23:00)
[2024-09-09 06:00] VITALS: BP 103/79; PULSE 111; RESP 18; TEMP 97.5; O2SAT 100
[2024-09-09 07:01] LABS: BASOPHILS % (AUTO) 0.5 % (0-1); EOSINOPHILS # (AUTO) 0.1 X10'3 (0-0.9); HEMOGLOBIN 9.1 g/dl (12.0-16.0); LYMPHOCYTES # (AUTO) 1.2 X10'3 (1.1-4.8); MEAN CORPUSCULAR HEMOGLOBIN 34.5 PG (27.0-31.0); NEUTROPHILS # (AUTO) 3.6 X10'3 (1.8-7.7); RED BLOOD COUNT 2.63 X10'6 (4.20-5.60); WHITE BLOOD COUNT 5.5 X10'3 (4.5-11.0)
[2024-09-09 07:04] LABS: EOSINOPHILS % (AUTO) 1.6 % (0-6); HEMATOCRIT 27.1 % (35.0-45.0); MEAN CORPUSCULAR HGB CONC 33.5 g/dL (33.0-36.5); MEAN CORPUSCULAR VOLUME 103.1 FL (78-98); MEAN PLATELET VOLUME 8.8 FL (7.4-10.4); MONOCYTES # (AUTO) 0.5 X10'3 (0-0.9); MONOCYTES % (AUTO) 9.8 % (2-12); NEUTROPHILS % (AUTO) 66.1 % (42-75); PLATELET COUNT 188 X10'3 (140-440); RED CELL DISTRIBUTION WIDTH 17.9 % (11.5-14.5)
[2024-09-09 08:00] VITALS: RESP 18; O2SAT 100
[2024-09-09 09:26] LABS: ALANINE AMINOTRANSFERASE 14 U/L (12-78); ALBUMIN 1.8 G/DL (3.4-5.0); ALBUMIN/GLOBULIN RATIO 0.5 (1.1-1.5); ALKALINE PHOSPHATASE 69 IU/L (46-116); ANION GAP 7 (8-16); ASPARTATE AMINO TRANSFERASE 19 U/L (10-37); BILIRUBIN,TOTAL 0.9 MG/DL (0.1-1.0); BLOOD UREA NITROGEN 12 MG/DL (7-18); BUN/CREATININE RATIO 10.4 (10.0-20.0); CALCIUM 7.8 MG/DL (8.5-10.1); CHLORIDE 107 MMOL/L (99-107); CREATININE 1.15 MG/DL (0.40-0.90); GLUCOSE 91 MG/DL (70-104); MAGNESIUM 1.7 MG/DL (1.5-2.4); POTASSIUM 3.6 MMOL/L (3.5-5.1); SODIUM 138 MMOL/L (135-145); TOTAL CARBON DIOXIDE 23.8 MMOL/L (24-32); TOTAL PROTEIN 5.5 G/DL (6.4-8.2); eCRCL 29 ML/MIN; eGFR 45 ML/MIN
[2024-09-09 11:00] VITALS: BP 102/85; PULSE 105; RESP 17; TEMP 99.1; O2SAT 100
[2024-09-09 11:25] VITALS: BP_SYST 102; PULSE 103
[2024-09-09] MEDS: metoprolol tartrate 1mg/ml inj IV ONE (11:25)
[2024-09-09] MEDS ORDERED: METO-395 PO (14:34)
[2024-09-09] MEDS ORDERED: metoprolol succinate 25mg (24-HOUR) SR. Tablet PO SCH (23:00)
== END 2024-09-09 16:37 | disposition home health service (06) | DRG 291 ==
LOC: ER 14:14 → ED HOLD 16:25 → PCU 3S 09-07 00:27
PROVIDERS: ADMIT Family Medicine; ATTEND Family Medicine
DX: I50.33 Acute on chronic diastolic (congestive) heart failure (principal); J96.01 Acute respiratory failure with hypoxia; K50.90 Crohn's disease, unspecified, without complications; I50.32 Chronic diastolic (congestive) heart failure; I48.91 Unspecified atrial fibrillation; E66.9 Obesity, unspecified; F03.90 Unspecified dementia, unspecified severity, without behavioral disturbance, psychotic disturbance, mood disturbance, and anxiety; K59.00 Constipation, unspecified; N18.30 Chronic kidney disease, stage 3 unspecified; M54.9 Dorsalgia, unspecified; M54.50 Low back pain, unspecified; D63.8 Anemia in other chronic diseases classified elsewhere; N28.9 Disorder of kidney and ureter, unspecified; G47.33 Obstructive sleep apnea (adult) (pediatric); Z83.3 Family history of diabetes mellitus; Z82.49 Family history of ischemic heart disease and other diseases of the circulatory system; Z79.02 Long term (current) use of antithrombotics/antiplatelets; Z88.0 Allergy status to penicillin; Z88.5 Allergy status to narcotic agent; Z90.49 Acquired absence of other specified parts of digestive tract; Z68.21 Body mass index [BMI] 21.0-21.9, adult; Z87.891 Personal history of nicotine dependence
CPT/HCPCS: 36415; 70450; 71045; 72192; 72195; 73522; 73700; 74018; 80053; 81001; 82607; 83540; 83550; 83605; 83735; 83880; 84484; 85025; 85379; 87081; 93005; 96365; 96375; 97161; 97530; 99285; A4353; A6213; A6446; G0378; J0696; J1171; J1940; J3490; J7040; Q9967

== ENCOUNTER 2024-09-12 12:38 | Inpatient (IN) | payer OTHER ==
[~2024-09-12] VITALS: Ht 154.9 cm; Wt 49.6 kg
[~2024-09-12 12:38] MED LIST changes: -CEFD300C3 PO; -HYDR-3965 PO
[2024-09-12 13:43] LABS: BASOPHILS % (AUTO) 0.5 % (0-1); EOSINOPHILS # (AUTO) 0.1 X10'3 (0-0.9); EOSINOPHILS % (AUTO) 1.2 % (0-6); HEMATOCRIT 30.7 % (35.0-45.0); HEMOGLOBIN 10.3 g/dl (12.0-16.0); LYMPHOCYTES # (AUTO) 1.6 X10'3 (1.1-4.8); MEAN CORPUSCULAR HEMOGLOBIN 34.8 PG (27.0-31.0); MEAN CORPUSCULAR HGB CONC 33.7 g/dL (33.0-36.5); MEAN CORPUSCULAR VOLUME 103.4 FL (78-98); MEAN PLATELET VOLUME 8.3 FL (7.4-10.4); MONOCYTES # (AUTO) 0.6 X10'3 (0-0.9); MONOCYTES % (AUTO) 6.6 % (2-12); NEUTROPHILS # (AUTO) 6.5 X10'3 (1.8-7.7); NEUTROPHILS % (AUTO) 73.7 % (42-75); PLATELET COUNT 330 X10'3 (140-440); RED BLOOD COUNT 2.97 X10'6 (4.20-5.60); RED CELL DISTRIBUTION WIDTH 17.9 % (11.5-14.5); WHITE BLOOD COUNT 8.8 X10'3 (4.5-11.0)
[2024-09-12 14:07] LABS: ALANINE AMINOTRANSFERASE 20 U/L (12-78); ALBUMIN 2.1 G/DL (3.4-5.0); ALBUMIN/GLOBULIN RATIO 0.5 (1.1-1.5); ALKALINE PHOSPHATASE 82 IU/L (46-116); ANION GAP 7 (8-16); ASPARTATE AMINO TRANSFERASE 17 U/L (10-37); BLOOD UREA NITROGEN 12 MG/DL (7-18); BUN/CREATININE RATIO 12.4 (10.0-20.0); CALCIUM 7.6 MG/DL (8.5-10.1); CHLORIDE 99 MMOL/L (99-107); CREATININE 0.97 MG/DL (0.40-0.90); GLUCOSE 114 MG/DL (70-104); POTASSIUM 3.7 MMOL/L (3.5-5.1); PRO BRAIN NATRIURETIC PEPTIDE 4157 PG/ML (0-450); SODIUM 132 MMOL/L (135-145); TOTAL CARBON DIOXIDE 26.2 MMOL/L (24-32); TOTAL PROTEIN 6.1 G/DL (6.4-8.2); eCRCL 34 ML/MIN; eGFR 55 ML/MIN
[2024-09-12] MEDS: magnesium hydroxide 30ml (MOM) UD suspension PO ONE (14:17)
[2024-09-12] MEDS: metoprolol tartrate 1mg/ml inj IV ONE (14:25)
[2024-09-12] MEDS ORDERED: BISA10SU11 RC (14:49)
[2024-09-12] MEDS ORDERED: DOCU-148 PO (14:49)
[2024-09-12] MEDS ORDERED: MAGN400O6 PO (14:49)
[2024-09-12] MEDS ORDERED: POLY119P2 PO (14:49)
[2024-09-12] MEDS: bisacodyl 5mg tablet.DR PO PRN (15:45)
[2024-09-12 15:58] LABS: OCCULT BLOOD STOOL POSITIVE (Neg)
[2024-09-12] MEDS: normal saline 500ml IV soln 500 ML IV SCH ×2 (17:41→18:20)
[2024-09-12] MEDS: LORazepam 2 mg/ml vial IV ONE (18:02)
[2024-09-12] MEDS: lactulose 20gm/30ml cup PO ONE (19:02)
[2024-09-12] MEDS ORDERED: morphine 2 MG/ML inj. syringe IV PRN (19:40)
[2024-09-12] MEDS ORDERED: potassium Cl 20 mEq SR tablet PO PRN ×2 (19:40)
[2024-09-12] MEDS ORDERED: magnesium sulf-water 4G/100mL 100 ML IV PRN (19:40)
[2024-09-12] MEDS ORDERED: ondansetron/PF 4mg/2ml inj IV PRN (19:40)
[2024-09-12] MEDS ORDERED: potassium Cl 40MEQ/1/2NS 520ml 520 ML IV PRN (19:40)
[2024-09-12] MEDS ORDERED: magnesium sulf-water 2g/50mL 50 ML IV PRN (19:40)
[2024-09-12] MEDS ORDERED: magnesium Cl slow-release 64mg tablet PO PRN (19:40)
[2024-09-12] MEDS ORDERED: acetaminophen 325mg tablet PO PRN (19:40)
[2024-09-12] MEDS ORDERED: magnesium hydroxide 30ml (MOM) UD suspension PO PRN (19:40)
[2024-09-12] MEDS ORDERED: mag hydrox/Alum hydrox/simeth 30ml oral suspension PO PRN (19:40)
[2024-09-12] MEDS: K and/or MAG REPLACEMENT MC SCH (20:00)
[2024-09-12] MEDS: docusate sod 100mg capsule PO SCH (20:00)
[2024-09-12] MEDS: amiodarone/D5 360MG/200ML BAG 200 ML IV SCH (21:33)
[2024-09-12 22:48] VITALS: BP 119/64; PULSE 116
[2024-09-12] MEDS ORDERED: hydrocortisone acetate 25mg rectal suppository RC PRN (22:50)
[2024-09-12 22:52] VITALS: BP 113/66; PULSE 114
[2024-09-12 23:21] VITALS: RESP 16; O2SAT 96
[2024-09-13] VITALS (8 sets, daily range): BP systolic 106–117; BP diastolic 54–77; PULSE 78–112; RESP 15–21; TEMP 96.7–97.7; O2SAT 93–100
[2024-09-13 06:33] LABS: BASOPHILS % (AUTO) 0.6 % (0-1); EOSINOPHILS # (AUTO) 0.1 X10'3 (0-0.9); EOSINOPHILS % (AUTO) 0.9 % (0-6); HEMATOCRIT 28.5 % (35.0-45.0); HEMOGLOBIN 9.5 g/dl (12.0-16.0); LYMPHOCYTES # (AUTO) 1.7 X10'3 (1.1-4.8); LYMPHOCYTES % (AUTO) 27.7 % (21-51); MEAN CORPUSCULAR HEMOGLOBIN 34.9 PG (27.0-31.0); MEAN CORPUSCULAR HGB CONC 33.3 g/dL (33.0-36.5); MEAN CORPUSCULAR VOLUME 104.7 FL (78-98); MEAN PLATELET VOLUME 8.3 FL (7.4-10.4); MONOCYTES # (AUTO) 0.5 X10'3 (0-0.9); MONOCYTES % (AUTO) 7.9 % (2-12); NEUTROPHILS # (AUTO) 3.8 X10'3 (1.8-7.7); NEUTROPHILS % (AUTO) 62.9 % (42-75); PLATELET COUNT 267 X10'3 (140-440); RED BLOOD COUNT 2.72 X10'6 (4.20-5.60); RED CELL DISTRIBUTION WIDTH 18.7 % (11.5-14.5); WHITE BLOOD COUNT 6.1 X10'3 (4.5-11.0)
[2024-09-13 07:17] LABS: ALANINE AMINOTRANSFERASE 13 U/L (12-78); ALBUMIN 1.9 G/DL (3.4-5.0); ALBUMIN/GLOBULIN RATIO 0.5 (1.1-1.5); ALKALINE PHOSPHATASE 74 IU/L (46-116); ANION GAP 10 (8-16); ASPARTATE AMINO TRANSFERASE 23 U/L (10-37); BILIRUBIN,TOTAL 0.8 MG/DL (0.1-1.0); BLOOD UREA NITROGEN 16 MG/DL (7-18); CALCIUM 7.9 MG/DL (8.5-10.1); CHLORIDE 103 MMOL/L (99-107); CREATININE 0.89 MG/DL (0.40-0.90); GLUCOSE 88 MG/DL (70-104); MAGNESIUM 2.1 MG/DL (1.5-2.4); POTASSIUM 3.9 MMOL/L (3.5-5.1); SODIUM 134 MMOL/L (135-145); THYROID STIMULATING HORMONE 8.26 ulU/ml (0.34-4.50); TOTAL PROTEIN 5.6 G/DL (6.4-8.2); eCRCL 37 ML/MIN; eGFR 61 ML/MIN
[2024-09-13 07:26] LABS: ANISOCYTOSIS 2+; ELLIPTOCYTES 1+; PLATELET ESTIMATE NORMAL; POIKILOCYTOSIS FEW
[2024-09-13] MEDS: bisacodyl 10mg suppository rectal RC SCH (08:00)
[2024-09-13] MEDS: aspirin 81mg, enteric-coated 1 TAB TABLET.DR PO SCH (08:41)
[2024-09-13] MEDS: amiodarone 200mg tablet PO SCH (08:41)
[2024-09-13] MEDS: hydrocortisone 2.5% 20 gm ointment TP SCH (08:41)
[2024-09-14] VITALS (9 sets, daily range): BP systolic 92–121; BP diastolic 53–82; PULSE 96–122; RESP 12–33; TEMP 97.3–97.8; O2SAT 96–100
[2024-09-14 06:09] LABS: BASOPHILS % (AUTO) 0.4 % (0-1); EOSINOPHILS # (AUTO) 0.1 X10'3 (0-0.9); EOSINOPHILS % (AUTO) 1.2 % (0-6); HEMOGLOBIN 8.8 g/dl (12.0-16.0); LYMPHOCYTES # (AUTO) 1.3 X10'3 (1.1-4.8); MEAN CORPUSCULAR HEMOGLOBIN 34.9 PG (27.0-31.0); MEAN CORPUSCULAR VOLUME 102.6 FL (78-98); MEAN PLATELET VOLUME 7.8 FL (7.4-10.4); MONOCYTES # (AUTO) 0.5 X10'3 (0-0.9); MONOCYTES % (AUTO) 9.4 % (2-12); PLATELET COUNT 228 X10'3 (140-440); RED BLOOD COUNT 2.54 X10'6 (4.20-5.60); RED CELL DISTRIBUTION WIDTH 18.5 % (11.5-14.5); WHITE BLOOD COUNT 4.9 X10'3 (4.5-11.0)
[2024-09-14 06:31] LABS: ALANINE AMINOTRANSFERASE 15 U/L (12-78); ALBUMIN 1.7 G/DL (3.4-5.0); ALBUMIN/GLOBULIN RATIO 0.5 (1.1-1.5); ALKALINE PHOSPHATASE 67 IU/L (46-116); ANION GAP 5 (8-16); ASPARTATE AMINO TRANSFERASE 14 U/L (10-37); BILIRUBIN,TOTAL 0.8 MG/DL (0.1-1.0); BLOOD UREA NITROGEN 13 MG/DL (7-18); BUN/CREATININE RATIO 15.9 (10.0-20.0); CALCIUM 7.5 MG/DL (8.5-10.1); CHLORIDE 104 MMOL/L (99-107); CREATININE 0.82 MG/DL (0.40-0.90); GLUCOSE 72 MG/DL (70-104); MAGNESIUM 2.2 MG/DL (1.5-2.4); POTASSIUM 3.7 MMOL/L (3.5-5.1); SODIUM 135 MMOL/L (135-145); TOTAL CARBON DIOXIDE 25.7 MMOL/L (24-32); TOTAL PROTEIN 4.9 G/DL (6.4-8.2); eCRCL 40 ML/MIN; eGFR 67 ML/MIN
[2024-09-14] MEDS: labetalol 20mg/4ml (5mg/ml) syringe IV ONE (23:41)
[2024-09-15 02:00] VITALS: BP 103/51; PULSE 102; RESP 21; TEMP 97.6; O2SAT 98
[2024-09-15 06:00] VITALS: BP 104/70; PULSE 116; RESP 18; TEMP 97.8; O2SAT 95
[2024-09-15 06:51] LABS: ALANINE AMINOTRANSFERASE 12 U/L (12-78); ALBUMIN 1.8 G/DL (3.4-5.0); ALBUMIN/GLOBULIN RATIO 0.5 (1.1-1.5); ALKALINE PHOSPHATASE 73 IU/L (46-116); ANION GAP 8 (8-16); ASPARTATE AMINO TRANSFERASE 21 U/L (10-37); BILIRUBIN,TOTAL 0.8 MG/DL (0.1-1.0); BLOOD UREA NITROGEN 13 MG/DL (7-18); BUN/CREATININE RATIO 14.8 (10.0-20.0); CALCIUM 7.6 MG/DL (8.5-10.1); CHLORIDE 104 MMOL/L (99-107); CREATININE 0.88 MG/DL (0.40-0.90); GLUCOSE 77 MG/DL (70-104); MAGNESIUM 2.1 MG/DL (1.5-2.4); POTASSIUM 3.7 MMOL/L (3.5-5.1); SODIUM 135 MMOL/L (135-145); TOTAL CARBON DIOXIDE 23.4 MMOL/L (24-32); TOTAL PROTEIN 5.2 G/DL (6.4-8.2); eCRCL 37 ML/MIN; eGFR 62 ML/MIN
[2024-09-15 07:48] LABS: BASOPHILS % (AUTO) 0.7 % (0-1); EOSINOPHILS # (AUTO) 0.1 X10'3 (0-0.9); EOSINOPHILS % (AUTO) 1.4 % (0-6); HEMATOCRIT 28.3 % (35.0-45.0); HEMOGLOBIN 9.4 g/dl (12.0-16.0); LYMPHOCYTES # (AUTO) 1.1 X10'3 (1.1-4.8); MEAN CORPUSCULAR HEMOGLOBIN 34.8 PG (27.0-31.0); MEAN CORPUSCULAR HGB CONC 33.3 g/dL (33.0-36.5); MEAN CORPUSCULAR VOLUME 104.7 FL (78-98); MEAN PLATELET VOLUME 8.3 FL (7.4-10.4); MONOCYTES # (AUTO) 0.4 X10'3 (0-0.9); MONOCYTES % (AUTO) 8.8 % (2-12); NEUTROPHILS # (AUTO) 3.1 X10'3 (1.8-7.7); NEUTROPHILS % (AUTO) 65.1 % (42-75); PLATELET COUNT 227 X10'3 (140-440); RED BLOOD COUNT 2.71 X10'6 (4.20-5.60); WHITE BLOOD COUNT 4.8 X10'3 (4.5-11.0)
[2024-09-15 08:00] VITALS: RESP 18; O2SAT 95
[2024-09-15 11:00] VITALS: BP 108/66; PULSE 106; RESP 27; TEMP 98.7; O2SAT 99
== END 2024-09-15 12:10 | disposition home health service (06) | DRG 389 ==
LOC: ER 12:39 → ED HOLD 19:46 → EDBEDREQ 21:21 → PCU 3S 22:03
PROVIDERS: ADMIT Internal Medicine Critical Care Medicine; ATTEND Internal Medicine
DX: K56.41 Fecal impaction (principal); E87.1 Hypo-osmolality and hyponatremia; I48.20 Chronic atrial fibrillation, unspecified; I50.32 Chronic diastolic (congestive) heart failure; K64.4 Residual hemorrhoidal skin tags; I11.0 Hypertensive heart disease with heart failure; I95.9 Hypotension, unspecified; G47.33 Obstructive sleep apnea (adult) (pediatric); F03.A0 Unspecified dementia, mild, without behavioral disturbance, psychotic disturbance, mood disturbance, and anxiety; Z87.891 Personal history of nicotine dependence; Z79.899 Other long term (current) drug therapy; Z83.3 Family history of diabetes mellitus; Z88.5 Allergy status to narcotic agent; Z88.0 Allergy status to penicillin; Z88.8 Allergy status to other drugs, medicaments and biological substances; Z91.018 Allergy to other foods; Z82.49 Family history of ischemic heart disease and other diseases of the circulatory system
CPT/HCPCS: 36415; 71045; 74018; 80053; 82272; 83735; 83880; 84443; 84484; 85008; 85025; 87081; 93005; 93308; 96374; 96375; 97161; 97530; 99285; A6212; A6250; G0378; J0282; J2060; J3490; J7040; J7050

== ENCOUNTER 2024-09-17 19:10 | Inpatient (IN) | payer OTHER ==
[~2024-09-17] VITALS: Ht 154.9 cm; Wt 58.0 kg
[~2024-09-17 19:10] MED LIST changes: -ASPI81TA52 PO; +BISA10SU11 RC; +DOCU-148 PO; +MAGN400O6 PO; +POLY119P2 PO
[2024-09-17 19:45] LABS: EOSINOPHILS # (AUTO) 0.1 X10'3 (0-0.9); HEMOGLOBIN 10.3 g/dl (12.0-16.0); MONOCYTES # (AUTO) 0.6 X10'3 (0-0.9); NEUTROPHILS # (AUTO) 5.3 X10'3 (1.8-7.7)
[2024-09-17 19:47] LABS: BASOPHILS % (AUTO) 0.5 % (0-1); HEMATOCRIT 30.6 % (35.0-45.0); LYMPHOCYTES # (AUTO) 1.4 X10'3 (1.1-4.8); LYMPHOCYTES % (AUTO) 19.3 % (21-51); MEAN CORPUSCULAR HEMOGLOBIN 34.9 PG (27.0-31.0); MEAN CORPUSCULAR HGB CONC 33.8 g/dL (33.0-36.5); MEAN CORPUSCULAR VOLUME 103.2 FL (78-98); MEAN PLATELET VOLUME 8.3 FL (7.4-10.4); MONOCYTES % (AUTO) 7.6 % (2-12); NEUTROPHILS % (AUTO) 71.6 % (42-75); PLATELET COUNT 306 X10'3 (140-440); RED BLOOD COUNT 2.96 X10'6 (4.20-5.60); RED CELL DISTRIBUTION WIDTH 18.4 % (11.5-14.5); WHITE BLOOD COUNT 7.4 X10'3 (4.5-11.0)
[2024-09-17 19:56] LABS: ALANINE AMINOTRANSFERASE 18 U/L (12-78); ALBUMIN 1.9 G/DL (3.4-5.0); ALBUMIN/GLOBULIN RATIO 0.4 (1.1-1.5); ALKALINE PHOSPHATASE 93 IU/L (46-116); ANION GAP 5 (8-16); BILIRUBIN,TOTAL 0.7 MG/DL (0.1-1.0); BLOOD UREA NITROGEN 15 MG/DL (7-18); BUN/CREATININE RATIO 14.9 (10.0-20.0); CALCIUM 7.7 MG/DL (8.5-10.1); CHLORIDE 99 MMOL/L (99-107); CREATININE 1.01 MG/DL (0.40-0.90); GLUCOSE 108 MG/DL (70-104); SODIUM 129 MMOL/L (135-145); TOTAL CARBON DIOXIDE 24.7 MMOL/L (24-32); TOTAL PROTEIN 6.3 G/DL (6.4-8.2); eCRCL 32 ML/MIN; eGFR 52 ML/MIN
[2024-09-17 20:05] LABS: PRO BRAIN NATRIURETIC PEPTIDE 5525 PG/ML (0-450)
[2024-09-17 20:06] LABS: ASPARTATE AMINO TRANSFERASE 52 U/L (10-37); POTASSIUM 4.9 MMOL/L (3.5-5.1)
[2024-09-17 20:11] LABS: TOTAL CELLS COUNTED 100
[2024-09-17 21:41] LABS: BILIRUBIN,URINE NEGATIVE (Neg); CLARITY,URINE CLOUDY (Clear); COLOR,URINE YELLOW (Yellow); GLUCOSE, URINE NEGATIVE (Neg); KETONES,URINE NEGATIVE (Neg); LEUKOCYTE ESTERASE ,URINE TRACE (Neg); NITRITES, URINE NEGATIVE (Neg); OCCULT BLOOD,URINE NEGATIVE (Neg); PROTEIN,URINE NEGATIVE (Neg); UROBILINOGEN,URINE 0.2 E.U/dL (0.2-1.0)
[2024-09-17 21:47] LABS: UA COLLECTION TYPE CLN CATCH MIDSTREAM
[2024-09-17 21:49] LABS: BACTERIA,URINE 4+ /HPF (Neg); MUCUS STRANDS FEW /LPF (Neg); SQUAMOUS EPITHELIAL CELL,UR MODERATE /LPF (FEW)
[2024-09-17 21:50] LABS: RBC,URINE NONE SEEN /HPF (0-2); YEAST MANY /HPF (NEGATIVE)
[2024-09-17] MEDS: diltiazem 5mg/ml 5ml inj. IV ONE (22:46)
[2024-09-17] MEDS: amiodarone 150mg/dext, iso-os 100 ML IV ONE (22:47)
[2024-09-17] MEDS ORDERED: ASPI-1071 PO (23:32)
[2024-09-17] MEDS ORDERED: METO-384 PO (23:32)
[2024-09-17] MEDS ORDERED: AMIO200T27 PO (23:32)
[2024-09-18] VITALS (12 sets, daily range): BP systolic 97–122; BP diastolic 47–101; PULSE 64–142; RESP 15–22; TEMP 97.2–98; O2SAT 94–100
[2024-09-18] MEDS: ciprofloxacin/D5W 200mg/100mL 100 ML IV SCH (01:27)
[2024-09-18] MEDS ORDERED: potassium Cl 20 mEq SR tablet PO PRN (01:55)
[2024-09-18] MEDS ORDERED: magnesium sulf-water 2g/50mL 50 ML IV PRN (01:55)
[2024-09-18] MEDS ORDERED: magnesium Cl slow-release 64mg tablet PO PRN (01:55)
[2024-09-18] MEDS ORDERED: acetaminophen 325mg tablet PO PRN (01:55)
[2024-09-18] MEDS ORDERED: magnesium hydroxide 30ml (MOM) UD suspension PO PRN (01:55)
[2024-09-18] MEDS ORDERED: potassium Cl 40MEQ/1/2NS 520ml 520 ML IV PRN (01:55)
[2024-09-18] MEDS ORDERED: ondansetron/PF 4mg/2ml inj IV PRN (01:55)
[2024-09-18] MEDS ORDERED: magnesium sulf-water 4G/100mL 100 ML IV PRN (01:55)
[2024-09-18 06:14] LABS: MAGNESIUM 1.9 MG/DL (1.5-2.4); POTASSIUM 3.8 MMOL/L (3.5-5.1)
[2024-09-18] MEDS: CefTRIAXone/D5W-Rocephin 1gm 50 ML IV SCH (07:42)
[2024-09-18] MEDS: EMPAGLIFLOZIN 10 MG TABLET PO SCH (07:42)
[2024-09-18] MEDS: docusate sod 100mg capsule PO SCH (07:43)
[2024-09-18] MEDS: aspirin 81mg, enteric-coated 1 TAB TABLET.DR PO SCH (07:43)
[2024-09-18] MEDS: amiodarone 200mg tablet PO SCH (07:43)
[2024-09-18] MEDS: metoprolol succinate 25mg (24-HOUR) SR. Tablet PO SCH (08:00)
[2024-09-18] MEDS: K and/or MAG REPLACEMENT MC SCH (08:00)
[2024-09-18] MEDS: furosemide 40mg/4ml inj IV SCH (08:00)
[2024-09-18 08:45] LABS: PHOSPHORUS 3.5 MG/DL (2.3-4.5)
[2024-09-18 12:52] LABS: BFSOURCE LEFT PLEURAL FLD; PLEURAL FLUID PH 7.511 (7.63-7.65)
[2024-09-18 13:04] LABS: GLUCOSE,BODY FLUID 92 MG/DL; LDH,BODY FLUID 54 U/L
[2024-09-18 13:12] LABS: BF RBC COUNT 173 /CU MM; BF WBC COUNT 75 /CU MM (0-1000); BFAPPEAR CLEAR; BFCOLOR YELLOW; BFSOURCE RIGHT PLEURAL FLD; BFVOLUME 60 ML; LYMPHOCYTES,BODY FLUID 24 %; MONOCYTES,BODY FLUID 29 %; NEUTROPHILS,BODY FLUID 47 %
[2024-09-18 13:29] LABS: TOTAL PROTEIN,BODY FLUID < 2.0 G/DL
[2024-09-18 14:02] LABS: GLUCOSE,BODY FLUID 90 MG/DL; LDH,BODY FLUID 53 U/L
[2024-09-18 14:06] LABS: BFSOURCE LEFT PLEURAL FLD; PLEURAL FLUID PH 7.517 (7.63-7.65)
[2024-09-18 14:11] LABS: BFSOURCE LEFT PLEURAL FLD
[2024-09-18 14:12] LABS: BF RBC COUNT 153 /CU MM; BF WBC COUNT 54 /CU MM (0-1000); BFAPPEAR CLEAR; BFCOLOR YELLOW; BFVOLUME 55 ML; LYMPHOCYTES,BODY FLUID 29 %; MONOCYTES,BODY FLUID 19 %; NEUTROPHILS,BODY FLUID 52 %
[2024-09-18 14:34] LABS: TOTAL PROTEIN,BODY FLUID < 2.0 G/DL
[2024-09-18] MEDS: dextrose 5%-normal saline 1,000 ML IV SCH (16:09)
[2024-09-18] MEDS: lactose-reduced food (Ensure Enlive) - 237ml bottle PO SCH (18:00)
[2024-09-19] VITALS (7 sets, daily range): BP systolic 91–115; BP diastolic 34–66; PULSE 100–133; RESP 16–26; TEMP 97–97.8; O2SAT 96–100
[2024-09-19] MEDS: diltiazem CD 120mg capsule (once-daily) PO ONE (02:16)
[2024-09-19 06:15] LABS: BASOPHILS % (AUTO) 0.6 % (0-1); EOSINOPHILS # (AUTO) 0.1 X10'3 (0-0.9); EOSINOPHILS % (AUTO) 0.9 % (0-6); HEMOGLOBIN 9.4 g/dl (12.0-16.0); LYMPHOCYTES # (AUTO) 0.9 X10'3 (1.1-4.8); LYMPHOCYTES % (AUTO) 12.6 % (21-51); MEAN CORPUSCULAR HEMOGLOBIN 34.4 PG (27.0-31.0); MEAN CORPUSCULAR HGB CONC 33.7 g/dL (33.0-36.5); MEAN CORPUSCULAR VOLUME 102.2 FL (78-98); MONOCYTES # (AUTO) 0.4 X10'3 (0-0.9); MONOCYTES % (AUTO) 5.6 % (2-12); NEUTROPHILS # (AUTO) 5.5 X10'3 (1.8-7.7); NEUTROPHILS % (AUTO) 80.3 % (42-75); PLATELET COUNT 227 X10'3 (140-440); RED BLOOD COUNT 2.74 X10'6 (4.20-5.60); WHITE BLOOD COUNT 6.9 X10'3 (4.5-11.0)
[2024-09-19 06:27] LABS: ALANINE AMINOTRANSFERASE 15 U/L (12-78); ALBUMIN 1.6 G/DL (3.4-5.0); ALBUMIN/GLOBULIN RATIO 0.5 (1.1-1.5); ALKALINE PHOSPHATASE 70 IU/L (46-116); ANION GAP 6 (8-16); ASPARTATE AMINO TRANSFERASE 15 U/L (10-37); BILIRUBIN,TOTAL 0.6 MG/DL (0.1-1.0); BLOOD UREA NITROGEN 13 MG/DL (7-18); BUN/CREATININE RATIO 13.5 (10.0-20.0); CALCIUM 7.4 MG/DL (8.5-10.1); CHLORIDE 102 MMOL/L (99-107); CREATININE 0.96 MG/DL (0.40-0.90); GLUCOSE 91 MG/DL (70-104); MAGNESIUM 1.7 MG/DL (1.5-2.4); POTASSIUM 3.4 MMOL/L (3.5-5.1); SODIUM 134 MMOL/L (135-145); TOTAL CARBON DIOXIDE 26.4 MMOL/L (24-32); TOTAL PROTEIN 4.9 G/DL (6.4-8.2); eCRCL 34 ML/MIN; eGFR 56 ML/MIN
[2024-09-19] MEDS: potassium Cl 20 mEq SR tablet PO PRN (11:04)
[2024-09-20] VITALS (8 sets, daily range): BP systolic 87–96; BP diastolic 36–57; PULSE 78–134; RESP 14–25; TEMP 96.6–97.9; O2SAT 96–100
[2024-09-20] MEDS: metoprolol tartrate 50mg tablet PO ONE (02:54)
[2024-09-20 06:55] LABS: BASOPHILS % (AUTO) 0.5 % (0-1); EOSINOPHILS # (AUTO) 0.1 X10'3 (0-0.9); EOSINOPHILS % (AUTO) 1.2 % (0-6); HEMATOCRIT 29.9 % (35.0-45.0); HEMOGLOBIN 9.8 g/dl (12.0-16.0); LYMPHOCYTES # (AUTO) 0.8 X10'3 (1.1-4.8); LYMPHOCYTES % (AUTO) 9.5 % (21-51); MEAN CORPUSCULAR HEMOGLOBIN 34.2 PG (27.0-31.0); MEAN CORPUSCULAR HGB CONC 32.7 g/dL (33.0-36.5); MEAN CORPUSCULAR VOLUME 104.8 FL (78-98); MEAN PLATELET VOLUME 8.5 FL (7.4-10.4); MONOCYTES # (AUTO) 0.6 X10'3 (0-0.9); MONOCYTES % (AUTO) 6.6 % (2-12); NEUTROPHILS % (AUTO) 82.2 % (42-75); PLATELET COUNT 194 X10'3 (140-440); RED BLOOD COUNT 2.86 X10'6 (4.20-5.60); WHITE BLOOD COUNT 8.5 X10'3 (4.5-11.0)
[2024-09-20 07:05] LABS: ALANINE AMINOTRANSFERASE 18 U/L (12-78); ALBUMIN 1.7 G/DL (3.4-5.0); ALBUMIN/GLOBULIN RATIO 0.4 (1.1-1.5); ALKALINE PHOSPHATASE 80 IU/L (46-116); ANION GAP 7 (8-16); ASPARTATE AMINO TRANSFERASE 18 U/L (10-37); BILIRUBIN,TOTAL 0.7 MG/DL (0.1-1.0); BLOOD UREA NITROGEN 14 MG/DL (7-18); BUN/CREATININE RATIO 14.3 (10.0-20.0); CALCIUM 7.9 MG/DL (8.5-10.1); CHLORIDE 106 MMOL/L (99-107); CREATININE 0.98 MG/DL (0.40-0.90); GLUCOSE 93 MG/DL (70-104); MAGNESIUM 1.8 MG/DL (1.5-2.4); POTASSIUM 4.9 MMOL/L (3.5-5.1); SODIUM 137 MMOL/L (135-145); TOTAL CARBON DIOXIDE 24.3 MMOL/L (24-32); TOTAL PROTEIN 5.5 G/DL (6.4-8.2); eCRCL 33 ML/MIN; eGFR 54 ML/MIN
[2024-09-20] MEDS: ondansetron 4mg rapidly disintigrating tab PO PRN (14:16)
[2024-09-21] VITALS (10 sets, daily range): BP systolic 81–107; BP diastolic 37–69; PULSE 63–121; RESP 13–28; TEMP 96.7–98; O2SAT 94–100
[2024-09-21] MEDS: metoprolol tartrate 50mg tablet PO ONE (04:51)
[2024-09-21 05:56] LABS: BASOPHILS % (AUTO) 0.2 % (0-1); EOSINOPHILS # (AUTO) 0.1 X10'3 (0-0.9); HEMATOCRIT 29.4 % (35.0-45.0); HEMOGLOBIN 9.1 g/dl (12.0-16.0); LYMPHOCYTES # (AUTO) 0.8 X10'3 (1.1-4.8); MEAN CORPUSCULAR HEMOGLOBIN 34.1 PG (27.0-31.0); MEAN CORPUSCULAR HGB CONC 31.1 g/dL (33.0-36.5); MEAN CORPUSCULAR VOLUME 109.7 FL (78-98); MEAN PLATELET VOLUME 8.1 FL (7.4-10.4); MONOCYTES # (AUTO) 0.5 X10'3 (0-0.9); MONOCYTES % (AUTO) 4.8 % (2-12); PLATELET COUNT 200 X10'3 (140-440); RED BLOOD COUNT 2.68 X10'6 (4.20-5.60); RED CELL DISTRIBUTION WIDTH 19.6 % (11.5-14.5); WHITE BLOOD COUNT 10.4 X10'3 (4.5-11.0)
[2024-09-21 06:10] LABS: ALANINE AMINOTRANSFERASE 13 U/L (12-78); ALBUMIN 1.5 G/DL (3.4-5.0); ALBUMIN/GLOBULIN RATIO 0.4 (1.1-1.5); ALKALINE PHOSPHATASE 74 IU/L (46-116); ANION GAP 10 (8-16); ASPARTATE AMINO TRANSFERASE 24 U/L (10-37); BILIRUBIN,TOTAL 0.5 MG/DL (0.1-1.0); BLOOD UREA NITROGEN 17 MG/DL (7-18); BUN/CREATININE RATIO 19.1 (10.0-20.0); CALCIUM 7.7 MG/DL (8.5-10.1); CHLORIDE 106 MMOL/L (99-107); CREATININE 0.89 MG/DL (0.40-0.90); GLUCOSE 107 MG/DL (70-104); MAGNESIUM 1.7 MG/DL (1.5-2.4); POTASSIUM 4.8 MMOL/L (3.5-5.1); SODIUM 135 MMOL/L (135-145); TOTAL CARBON DIOXIDE 19.3 MMOL/L (24-32); TOTAL PROTEIN 5.1 G/DL (6.4-8.2); eCRCL 37 ML/MIN; eGFR 61 ML/MIN
[2024-09-21] MEDS: metoprolol succinate 25mg (24-HOUR) SR. Tablet PO SCH (09:00)
[2024-09-22] VITALS (8 sets, daily range): BP systolic 77–108; BP diastolic 40–55; PULSE 73–120; RESP 10–45; TEMP 97.1–97.7; O2SAT 96–100
[2024-09-22 07:47] LABS: BASOPHILS % (AUTO) 0.4 % (0-1); EOSINOPHILS # (AUTO) 0.1 X10'3 (0-0.9); EOSINOPHILS % (AUTO) 1.1 % (0-6); HEMATOCRIT 28.2 % (35.0-45.0); HEMOGLOBIN 9.2 g/dl (12.0-16.0); LYMPHOCYTES # (AUTO) 0.9 X10'3 (1.1-4.8); LYMPHOCYTES % (AUTO) 10.2 % (21-51); MEAN CORPUSCULAR HEMOGLOBIN 34.2 PG (27.0-31.0); MEAN CORPUSCULAR HGB CONC 32.7 g/dL (33.0-36.5); MEAN CORPUSCULAR VOLUME 104.6 FL (78-98); MEAN PLATELET VOLUME 8.3 FL (7.4-10.4); MONOCYTES # (AUTO) 0.6 X10'3 (0-0.9); MONOCYTES % (AUTO) 6.7 % (2-12); NEUTROPHILS # (AUTO) 6.9 X10'3 (1.8-7.7); NEUTROPHILS % (AUTO) 81.6 % (42-75); PLATELET COUNT 221 X10'3 (140-440); RED CELL DISTRIBUTION WIDTH 18.6 % (11.5-14.5); WHITE BLOOD COUNT 8.4 X10'3 (4.5-11.0)
[2024-09-22] MEDS: fluconazole 100mg tablet PO SCH (08:00)
[2024-09-22] MEDS ORDERED: vancomycin/NS 1 GM ADD-VANTAGE 250 ML IV SCH (08:00)
[2024-09-22 08:09] LABS: ALANINE AMINOTRANSFERASE 14 U/L (12-78); ALBUMIN 1.6 G/DL (3.4-5.0); ALBUMIN/GLOBULIN RATIO 0.4 (1.1-1.5); ALKALINE PHOSPHATASE 71 IU/L (46-116); ANION GAP 9 (8-16); ASPARTATE AMINO TRANSFERASE 18 U/L (10-37); BILIRUBIN,TOTAL 0.5 MG/DL (0.1-1.0); BLOOD UREA NITROGEN 19 MG/DL (7-18); BUN/CREATININE RATIO 17.6 (10.0-20.0); CALCIUM 7.8 MG/DL (8.5-10.1); CHLORIDE 106 MMOL/L (99-107); CREATININE 1.08 MG/DL (0.40-0.90); GLUCOSE 94 MG/DL (70-104); MAGNESIUM 1.7 MG/DL (1.5-2.4); POTASSIUM 4.2 MMOL/L (3.5-5.1); SODIUM 138 MMOL/L (135-145); TOTAL CARBON DIOXIDE 22.9 MMOL/L (24-32); TOTAL PROTEIN 5.3 G/DL (6.4-8.2); eCRCL 30 ML/MIN; eGFR 49 ML/MIN
[2024-09-22] MEDS: vancomycin/NS 1 GM ADD-VANTAGE 250 ML IV SCH (09:38)
[2024-09-22] MEDS: albumin (Human) 5% 250ml 250 ML IV ONE (12:14)
[2024-09-22] MEDS: mag hydrox/Alum hydrox/simeth 30ml oral suspension PO PRN (15:20)
[2024-09-22] MEDS: diltiazem 5mg/ml 5ml inj. IV ONE (16:52)
[2024-09-22] MEDS ORDERED: acetaminophen 1,000mg/100ml IV 100 ML IV SCH (20:00)
[2024-09-22] MEDS: ciprofloxacin 250mg tablet PO SCH (22:46)
[2024-09-23 06:00] VITALS: BP 109/43; PULSE 86; RESP 12; TEMP 96.7; O2SAT 90
[2024-09-23 07:16] LABS: BASOPHILS % (AUTO) 0.6 % (0-1); EOSINOPHILS # (AUTO) 0.1 X10'3 (0-0.9); HEMOGLOBIN 9.7 g/dl (12.0-16.0); LYMPHOCYTES # (AUTO) 0.9 X10'3 (1.1-4.8); LYMPHOCYTES % (AUTO) 13.6 % (21-51); MEAN CORPUSCULAR HGB CONC 33.4 g/dL (33.0-36.5); MEAN CORPUSCULAR VOLUME 104.7 FL (78-98); MEAN PLATELET VOLUME 8.3 FL (7.4-10.4); MONOCYTES # (AUTO) 0.5 X10'3 (0-0.9); MONOCYTES % (AUTO) 7.3 % (2-12); NEUTROPHILS # (AUTO) 5.2 X10'3 (1.8-7.7); NEUTROPHILS % (AUTO) 77.5 % (42-75); PLATELET COUNT 215 X10'3 (140-440); RED BLOOD COUNT 2.77 X10'6 (4.20-5.60); RED CELL DISTRIBUTION WIDTH 18.8 % (11.5-14.5); WHITE BLOOD COUNT 6.7 X10'3 (4.5-11.0)
[2024-09-23 08:00] VITALS: RESP 12; O2SAT 90
[2024-09-23 08:01] LABS: CHLORIDE 106 MMOL/L (99-107); GLUCOSE 77 MG/DL (70-104); POTASSIUM 4.3 MMOL/L (3.5-5.1); SODIUM 140 MMOL/L (135-145); TOTAL CARBON DIOXIDE 25.3 MMOL/L (24-32)
[2024-09-23 08:02] LABS: ALANINE AMINOTRANSFERASE 19 U/L (12-78); ALBUMIN 1.7 G/DL (3.4-5.0); ALBUMIN/GLOBULIN RATIO 0.4 (1.1-1.5); ALKALINE PHOSPHATASE 71 IU/L (46-116); ANION GAP 9 (8-16); ASPARTATE AMINO TRANSFERASE 17 U/L (10-37); BILIRUBIN,TOTAL 0.5 MG/DL (0.1-1.0); BLOOD UREA NITROGEN 20 MG/DL (7-18); BUN/CREATININE RATIO 17.9 (10.0-20.0); CREATININE 1.12 MG/DL (0.40-0.90); TOTAL PROTEIN 5.6 G/DL (6.4-8.2); eCRCL 29 ML/MIN; eGFR 47 ML/MIN
[2024-09-23] MEDS: linezolid 600mg/300ml PREMIX 300 ML IV SCH (10:05)
[2024-09-23 11:00] VITALS: BP 98/53; PULSE 109; RESP 17; TEMP 98.6; O2SAT 97
[2024-09-23 15:00] VITALS: BP 98/56; PULSE 99; RESP 22; TEMP 98.7; O2SAT 98
[2024-09-23 20:00] VITALS: RESP 24; O2SAT 98
[2024-09-23] MEDS: furosemide 40mg/4ml inj IV ONE (20:58)
[2024-09-23] MEDS: amiodarone 200mg tablet PO SCH (20:59)
[2024-09-23 22:00] VITALS: BP 105/45; PULSE 126; RESP 24; TEMP 97.7; O2SAT 98
[2024-09-24] VITALS (7 sets, daily range): BP systolic 94–121; BP diastolic 52–67; PULSE 58–102; RESP 15–22; TEMP 97–98.4; O2SAT 92–98
[2024-09-24 07:57] LABS: BASOPHILS % (AUTO) 0.3 % (0-1); EOSINOPHILS # (AUTO) 0.1 X10'3 (0-0.9); EOSINOPHILS % (AUTO) 1.8 % (0-6); HEMOGLOBIN 8.5 g/dl (12.0-16.0); LYMPHOCYTES % (AUTO) 18.7 % (21-51); MEAN CORPUSCULAR HEMOGLOBIN 34.6 PG (27.0-31.0); MEAN CORPUSCULAR HGB CONC 32.8 g/dL (33.0-36.5); MEAN CORPUSCULAR VOLUME 105.6 FL (78-98); MEAN PLATELET VOLUME 8.1 FL (7.4-10.4); MONOCYTES # (AUTO) 0.6 X10'3 (0-0.9); MONOCYTES % (AUTO) 10.2 % (2-12); NEUTROPHILS # (AUTO) 3.8 X10'3 (1.8-7.7); PLATELET COUNT 201 X10'3 (140-440); RED BLOOD COUNT 2.46 X10'6 (4.20-5.60); RED CELL DISTRIBUTION WIDTH 18.6 % (11.5-14.5); WHITE BLOOD COUNT 5.6 X10'3 (4.5-11.0)
[2024-09-24 08:10] LABS: ALANINE AMINOTRANSFERASE 14 U/L (12-78); ALBUMIN 1.4 G/DL (3.4-5.0); ALBUMIN/GLOBULIN RATIO 0.4 (1.1-1.5); ALKALINE PHOSPHATASE 64 IU/L (46-116); ANION GAP 7 (8-16); ASPARTATE AMINO TRANSFERASE 20 U/L (10-37); BILIRUBIN,TOTAL 0.4 MG/DL (0.1-1.0); BLOOD UREA NITROGEN 20 MG/DL (7-18); BUN/CREATININE RATIO 18.9 (10.0-20.0); CALCIUM 7.6 MG/DL (8.5-10.1); CHLORIDE 108 MMOL/L (99-107); CREATININE 1.06 MG/DL (0.40-0.90); GLUCOSE 97 MG/DL (70-104); POTASSIUM 3.6 MMOL/L (3.5-5.1); SODIUM 138 MMOL/L (135-145); TOTAL CARBON DIOXIDE 22.9 MMOL/L (24-32); TOTAL PROTEIN 5.1 G/DL (6.4-8.2); eCRCL 31 ML/MIN; eGFR 50 ML/MIN
[2024-09-24] MEDS: furosemide 40mg/4ml inj IV SCH (08:42)
[2024-09-25] VITALS (19 sets, daily range): BP systolic 84–115; BP diastolic 21–90; PULSE 72–140; RESP 12–24; TEMP 97.4–98.6; O2SAT 96–99
[2024-09-25] MEDS: metoprolol tartrate 1mg/ml inj IV SCH ×2 (02:53→03:24)
[2024-09-25] MEDS: metoprolol tartrate 1mg/ml inj IV ONE (04:00)
[2024-09-25] MEDS: metoprolol tartrate 50mg tablet PO SCH (08:00)
[2024-09-25] MEDS ORDERED: levoFLOXACIN-Levaquin 750MG/D5 150 ML IV SCH (08:00)
[2024-09-25 08:12] LABS: BASOPHILS # (AUTO) 0.1 X10'3 (0-0.2); BASOPHILS % (AUTO) 0.3 % (0-1); EOSINOPHILS % (AUTO) 0 % (0-6); HEMATOCRIT 33.2 % (35.0-45.0); HEMOGLOBIN 10.5 g/dl (12.0-16.0); LYMPHOCYTES # (AUTO) 0.8 X10'3 (1.1-4.8); LYMPHOCYTES % (AUTO) 3.2 % (21-51); MEAN CORPUSCULAR HEMOGLOBIN 34.2 PG (27.0-31.0); MEAN CORPUSCULAR HGB CONC 31.7 g/dL (33.0-36.5); MEAN PLATELET VOLUME 8.4 FL (7.4-10.4); MONOCYTES # (AUTO) 1.1 X10'3 (0-0.9); MONOCYTES % (AUTO) 4.5 % (2-12); NEUTROPHILS # (AUTO) 22.1 X10'3 (1.8-7.7); PLATELET COUNT 304 X10'3 (140-440); RED BLOOD COUNT 3.07 X10'6 (4.20-5.60); RED CELL DISTRIBUTION WIDTH 18.8 % (11.5-14.5)
[2024-09-25] MEDS ORDERED: VANCOMYCIN LEVEL IV ONE (08:30)
[2024-09-25] MEDS: digoxin 250mcg/ml 2ml ampule IV STA (08:42)
[2024-09-25 08:44] LABS: ALANINE AMINOTRANSFERASE 18 U/L (12-78); ALBUMIN 1.6 G/DL (3.4-5.0); ALBUMIN/GLOBULIN RATIO 0.4 (1.1-1.5); ALKALINE PHOSPHATASE 68 IU/L (46-116); ANION GAP 12 (8-16); BILIRUBIN,TOTAL 0.7 MG/DL (0.1-1.0); BLOOD UREA NITROGEN 24 MG/DL (7-18); CHLORIDE 105 MMOL/L (99-107); CREATININE 1.33 MG/DL (0.40-0.90); GLUCOSE 109 MG/DL (70-104); SODIUM 140 MMOL/L (135-145); TOTAL CARBON DIOXIDE 22.6 MMOL/L (24-32); TOTAL PROTEIN 5.7 G/DL (6.4-8.2); VANCOMYCIN,TROUGH 11.9 ug/mL (10.0-20.0); eCRCL 25 ML/MIN; eGFR 38 ML/MIN
[2024-09-25 08:46] LABS: ASPARTATE AMINO TRANSFERASE 47 U/L (10-37); POTASSIUM 4.7 MMOL/L (3.5-5.1)
[2024-09-25] MEDS: normal saline 500ml IV soln 500 ML IV ONE (10:10)
[2024-09-25] MEDS: normal saline 1000ml 1,000 ML IV SCH (13:48)
[2024-09-25] MEDS ORDERED: midodrine tablet 2.5 MG TABLET PO PRN (14:00)
[2024-09-25] MEDS: amiodarone/D5 360MG/200ML BAG 200 ML IV SCH (14:06)
[2024-09-26 01:49] VITALS: BP 135/88; PULSE 84; RESP 18
[2024-09-26 01:51] LABS: BASOPHILS # (AUTO) 0.1 X10'3 (0-0.2); BASOPHILS % (AUTO) 0.5 % (0-1); WHITE BLOOD COUNT 14.6 X10'3 (4.5-11.0)
[2024-09-26 01:52] LABS: EOSINOPHILS % (AUTO) 0.1 % (0-6); HEMATOCRIT 24.7 % (35.0-45.0); HEMOGLOBIN 7.6 g/dl (12.0-16.0); LYMPHOCYTES # (AUTO) 2.9 X10'3 (1.1-4.8); LYMPHOCYTES % (AUTO) 19.8 % (21-51); MEAN CORPUSCULAR HEMOGLOBIN 34.2 PG (27.0-31.0); MEAN CORPUSCULAR HGB CONC 30.6 g/dL (33.0-36.5); MEAN CORPUSCULAR VOLUME 111.7 FL (78-98); MONOCYTES # (AUTO) 0.4 X10'3 (0-0.9); MONOCYTES % (AUTO) 2.8 % (2-12); NEUTROPHILS # (AUTO) 11.2 X10'3 (1.8-7.7); NEUTROPHILS % (AUTO) 76.8 % (42-75); PLATELET COUNT 202 X10'3 (140-440); RED BLOOD COUNT 2.21 X10'6 (4.20-5.60); RED CELL DISTRIBUTION WIDTH 19.7 % (11.5-14.5)
[2024-09-26 02:00] VITALS: BP 135/88; PULSE 83; RESP 18
[2024-09-26] MEDS: NORepinephrine 8mg/ 250ml NS 250 ML IV ONE (02:00)
[2024-09-26 02:09] LABS: ALANINE AMINOTRANSFERASE 820 U/L (12-78); ALBUMIN 0.8 G/DL (3.4-5.0); ALBUMIN/GLOBULIN RATIO 0.3 (1.1-1.5); ALKALINE PHOSPHATASE 54 IU/L (46-116); ANION GAP 15 (8-16); BILIRUBIN,TOTAL 0.4 MG/DL (0.1-1.0); BLOOD UREA NITROGEN 30 MG/DL (7-18); BUN/CREATININE RATIO 15.4 (10.0-20.0); CALCIUM 7.2 MG/DL (8.5-10.1); CHLORIDE 107 MMOL/L (99-107); CREATININE 1.95 MG/DL (0.40-0.90); GLUCOSE 105 MG/DL (70-104); POTASSIUM 5.8 MMOL/L (3.5-5.1); SODIUM 147 MMOL/L (135-145); TOTAL CARBON DIOXIDE 25.1 MMOL/L (24-32); TOTAL PROTEIN 3.2 G/DL (6.4-8.2); eCRCL 17 ML/MIN; eGFR 25 ML/MIN
[2024-09-26 02:11] LABS: ASPARTATE AMINO TRANSFERASE 2267 U/L (10-37); PRO BRAIN NATRIURETIC PEPTIDE 29490 PG/ML (0-450)
[2024-09-26 02:15] LABS: ABG BASE EXCESS -14.8 mmol/L (-2.0-3.0); ABG HCO3 11.2 mmol/L (21.0-28.0); ABG OXYGEN SATURATION 99.7 % (94.0-98.0); ABG PCO2 (T) 26.6 mmHg (32.0-45.0); ABG PH (T) 7.241 (7.350-7.450); ABG PO2 (T) 479.5 mmHg (83.0-108.0); FCOHb 0.2 % (0.5-1.5); FHHb 0.3 % (0.0-5.0); FMetHb 0.3 % (0.0-1.5); FO2Hb 99.2 % (94.0-98.0); MODE VENT - AC; PATIENT TEMPERATURE 36.5; PEEP 5 cm H2O; RESPIRATORY RATE 18 b/min; TIDAL VOLUME 400 mL; TOTAL HEMOGLOBIN 8.9 G/dl (12.0-16.0)
[2024-09-26 02:30] VITALS: BP 105/79; PULSE 74; RESP 18
[2024-09-26 02:45] VITALS: BP 103/48; PULSE 80; RESP 18
[2024-09-26 03:00] VITALS: BP 83/45; PULSE 81; RESP 18
[2024-09-26 03:02] LABS: ANISOCYTOSIS 2+; POLYCHROMASIA FEW
[2024-09-26] MEDS: sodium bicarbonate (8.4%) 1 mEq/ml syringe ONE (03:06)
[2024-09-26] MEDS ORDERED: amiodarone 50MG/ML inj IV ONE (08:00)
== END 2024-09-26 13:17 | DRG 871 ==
LOC: ER 19:10 → PCU 3S 22:31 → CICU 2S 09-26 01:50
PROVIDERS: ADMIT Internal Medicine; ATTEND Family Medicine
PROC: 0W9B3ZZ Drainage of Left Pleural Cavity, Percutaneous Approach (ICD-10-PCS; principal; 2024-09-18)
PROC: 0W993ZZ Drainage of Right Pleural Cavity, Percutaneous Approach (ICD-10-PCS; 2024-09-18)
PROC: 05HC33Z Insertion of Infusion Device into Left Basilic Vein, Percutaneous Approach (ICD-10-PCS; 2024-09-25)
PROC: B54NZZA Ultrasonography of Left Upper Extremity Veins, Guidance (ICD-10-PCS; 2024-09-25)
PROC: 5A12012 Performance of Cardiac Output, Single, Manual (ICD-10-PCS; 2024-09-26)
PROC: 0BH18EZ Insertion of Endotracheal Airway into Trachea, Via Natural or Artificial Opening Endoscopic (ICD-10-PCS; 2024-09-26)
PROC: 5A1935Z Respiratory Ventilation, Less than 24 Consecutive Hours (ICD-10-PCS; 2024-09-26)
DX: A41.81 Sepsis due to Enterococcus (principal); I50.33 Acute on chronic diastolic (congestive) heart failure; J96.01 Acute respiratory failure with hypoxia; E87.1 Hypo-osmolality and hyponatremia; N17.9 Acute kidney failure, unspecified; N39.0 Urinary tract infection, site not specified; I48.20 Chronic atrial fibrillation, unspecified; J98.11 Atelectasis; J91.8 Pleural effusion in other conditions classified elsewhere; K56.600 Partial intestinal obstruction, unspecified as to cause; Z16.21 Resistance to vancomycin; I11.0 Hypertensive heart disease with heart failure; F03.C0 Unspecified dementia, severe, without behavioral disturbance, psychotic disturbance, mood disturbance, and anxiety; I46.9 Cardiac arrest, cause unspecified; K56.41 Fecal impaction; G47.33 Obstructive sleep apnea (adult) (pediatric); E66.9 Obesity, unspecified; D53.9 Nutritional anemia, unspecified; I35.1 Nonrheumatic aortic (valve) insufficiency; Z83.3 Family history of diabetes mellitus; Z88.5 Allergy status to narcotic agent; Z88.0 Allergy status to penicillin; Z88.8 Allergy status to other drugs, medicaments and biological substances; Z82.49 Family history of ischemic heart disease and other diseases of the circulatory system; Z68.24 Body mass index [BMI] 24.0-24.9, adult; Z87.891 Personal history of nicotine dependence; B95.2 Enterococcus as the cause of diseases classified elsewhere; R62.7 Adult failure to thrive
CPT/HCPCS: 32555; 36410; 36415; 36600; 71045; 71250; 74018; 74176; 76604; 76937; 80053; 80202; 81001; 82803; 82945; 82948; 83615; 83735; 83880; 83930; 83986; 84100; 84132; 84145; 84157; 84484; 85007; 85008; 85018; 85025; 87040; 87070; 87075; 87077; 87081; 87088; 87102; 87186; 89051; 92950; 93005; 93970; 94002; 94799; 96365; 96375; 97116; 97161; 97530; 99291; A4615; A6213; A6250; A6258; A6260; C1751; C1758; G0378; J0171; J0282; J0696; J0744; J1160; J1940; J2020; J3370; J3490; J7030; J7040; J7042; P9045